=== PATIENT | female | born 1965 | race Caucasian/White ===

== ENCOUNTER → 2017-05-02 | Outpatient (CLI) | payer MEDICAID ==
[~2017-05-02] MED LIST: ACHD5005 PO; ALPR.25T PO; ALPR0.5T PO; BUSP15TA60 PO; CITA-105 PO; CYCL10TA45 PO; CYCL10TA9 PO; DCS100C PO; DIAZ5TAB3 PO; DICL50TA3 PO; ESTR1TAB24 PO; ETOD400T PO; GABA-486 PO; GABA-488 PO; GABA300C PO; GBPN100C PO; HYDR-1435 PO; HYDR-2890 PO; HYDR-623 PO; HYDR50TA76 PO; IBP800T PO; KETO200T PO; Lyrica; MECL-124 PO; MELO-195 PO; METO-272 PO; METR500T PO; NAPR-243 PO; NAPR220T76 PO; NIAC1CAP PO; NITR-65 PO; ONDA4TAB11 PO; ONDN4T PO; OXYC-12 PO; OXYC-190 PO; OXYC-272 PO; PANT40TA2 PO; PHEN-452 PO; PHEN100T17 PO; QUET50TA PO; SENN-35 PO; SEROQUEL; SERT100T8 PO; TRAZ150T42 PO; VENL150C PO; VNL75T PO
--- NOTE | 2017-05-02 09:53 | Diagnostic Imaging Report ---
Three views of the left knee. INDICATION: Left knee pain. FINDINGS: There is narrowing of the joint space in the medial compartment and the patellofemoral compartments. There is tricompartmental osteophytes. No significant effusion seen. No fracture, dislocation or radiopaque foreign body. IMPRESSION: Osteoarthritis most prominent in the medial and patellofemoral compartments. Dictated by: Dictated on workstation # [id number]
== END ==
LOC: RAD 09:17
DX: M17.12 Unilateral primary osteoarthritis, left knee (principal)
CPT/HCPCS: 73562

== ENCOUNTER 2017-11-21 22:22 | Emergency (ER) | payer MEDICARE, OTHER, MEDICAID ==
[~2017-11-21] VITALS: Ht 149.9 cm; Wt 77.2 kg
--- OUTSIDE RECORDS SUMMARY | 2017-11-21 22:28 | XMS REPORT ---
Author Author HEMA MARIE Organization [employer] Address Unknown Phone Unavailable Care Team Providers Care Pathology Technician Name Role Phone HEMA MARIE CP Unavailable Allergies No Known Allergies Problems Problem Type Condition ICD-9 Code Onset Dates Condition Status Problem Pain in joint, site unspecified 719.40 Active Problem Essential hypertension, benign 401.1 Active Problem Other and unspecified hyperlipidemia 272.4 Active Problem Family history of diabetes mellitus V18.0 Active Problem Anxiety state, unspecified 300.00 Active Problem Influenza with other respiratory manifestations 487.1 Active Problem Unspecified myalgia and myositis 729.1 Active Problem Pain in soft tissues of limb 729.5 Active Problem Major depressive disorder, recurrent episode, moderate 296.32 Active Problem Candidiasis of skin and nails 112.3 Active Assessment Dental examination V72.2 Active Problem Encounter for long-term (current) use of other medications V58.69 Active Problem Routine general medical examination at health care facility V70.0 Active Problem Abdominal pain, right lower quadrant 789.03 Active Medications No Known Medications Procedures Procedure Coding System Code Date RESIN COMPOS - ONE SURFACE ANTERIOR CPT-4 D2330 June 04, 2015 RESIN COMPOS - 2 SURFACES ANTERIOR CPT-4 D2331 June 04, 2015 RESIN COMPOS - ONE SURFACE ANTERIOR CPT-4 D2330 June 04, 2015 Results No Known Results Summary Purpose [employer] Submission
--- OUTSIDE RECORDS SUMMARY | 2017-11-21 22:28 | XMS REPORT ---
Author REMA Mathew [employer] Address Unknown Phone Unavailable Care Team Providers Care Supervisor Sawing And Assembly Name Role Phone REMA HUGHES CP Unavailable Allergies, Adverse Reactions, Alerts Substance Reaction Event Type Penicillin V Potassium Info Not Available Drug Allergy Cymbalta 30 Mg Capsule,delayed Release(dr/ec) Nightmares Non Drug Allergy Problems Problem Type Condition Code Onset Dates Condition Status Problem Pain [...] of skin and nails 112.3 Active Assessment Encounter for dental examination Z01.20 Active Problem Encounter for long-term (current) use of other medications V58.69 Active Problem Routine general medical examination at health care facility V70.0 Active Problem Abdominal pain, right lower quadrant 789.03 Active Medications Medication Code System Code Instructions Start Date End Date Status Dosage venlafaxine ND 0 50 mg May 08, 2014 take 1 tablet (50 mg) by oral route 2 times per day with food Gabapentin [facility] [address]-24 300 mg May 08, 2014 take 1 capsule ( 300 mg) by oral route 3 times per day Clotrimazole [facility] [address]-30 1 % January 29, 2015 1 flor by Topical route 2 times per day Alprazolam [facility] [address]-48 0.5 mg May 08, 2014 take 1 tablet ( 0.5 mg) by oral route 3 times per day Nystatin [facility] [address]-15 100,000 unit/gram May 08, 2014 1 application 3 times per day Apply to affected area 3 times daily as needed for yeast infection. Effexor XR [facility] [address]-80 75 mg Nov 08, 2013 1 capsule by Oral route 1 time per day Diflucan [facility] [address]-87 150 mg January 29, 2015 take 1 tablet by Oral route once 1 time per day repeat in 3 days Diazepam [facility] [address]-64 not defined Hydrocodone-Acetaminophen [facility] [address]-95 7.5-325 mg May 08, 2014 take 1 tablet by oral route every 4 hours as needed for pain Cipro [facility] [address]-35 500 mg Jun 25, 2013 1 tablet by Oral route every 12 hours for 10 day(s) Etodolac [facility] [address]-36 400 mg May 08, 2014 take 1 tablet ( 400 mg) by oral route 2 times per day with food Procedures Procedure Coding System Code Date INTRAORL-PERIAPICAL 1 FILM 39555 CPT-4 D0220 June 15, 2016 BITEWINGS - FOUR FILMS CPT-4 D0274 June 15, 2016 COMP ORAL EVALUATION - NEW/EST PT CPT-4 D0150 June 15, 2016 PANORAMIC FILM SEE ALSO CODE 92317 CPT-4 D0330 June 15, 2016 Vital Signs Date/Time: June 15, 2016 Blood Pressure Diastolic 89 mmHg Blood Pressure Systolic 162 mmHg Cardiac Monitoring Heart Rate 90 bpm Results No Known Results Summary Purpose [employer]ClinicalWorks Submission
--- OUTSIDE RECORDS SUMMARY | 2017-11-21 22:29 | XMS REPORT ---
Author Author FAUSTINO MELO [facility] Address [address] [place] [address] Care Team Providers Care Media Analyst Name Role Phone FAUSTINO MELO Unavailable PROBLEMS Type Condition ICD9-CM Code [id number] Code Onset Dates Condition Status SNOMED Code Problem Other and unspecified hyperlipidemia 272.4 Active 68246222 Problem Pain in soft tissues of limb 729.5 Active 08490840 Problem Essential hypertension, benign 401.1 Active 6147964 Problem Encounter for long-term (current) use of other medications V58.69 Active 262453311 Problem Routine general medical examination at health care facility V70.0 Active 695267932 Problem Abdominal pain, right lower quadrant 789.03 Active 644261393 Problem Pain in joint, site unspecified 719.40 Active 80477307 Problem Influenza with other respiratory manifestations 487.1 Active 9481224 Problem Family history of diabetes mellitus V18.0 Active 090970740 Problem Candidiasis of skin and nails 112.3 Active 554349534 Problem Unspecified myalgia and myositis 729.1 Active 258026694 Problem Anxiety state, unspecified 300.00 Active 825660340 Problem Major depressive disorder, recurrent episode, moderate 296.32 Active 04868736 ALLERGIES No Known Allergies SOCIAL HISTORY No smoking Hx information available PLAN OF CARE VITAL SIGNS MEDICATIONS No Known Medications RESULTS No Results PROCEDURES No Known procedures IMMUNIZATIONS No Known Immunizations
--- OUTSIDE RECORDS SUMMARY | 2017-11-21 22:29 | XMS REPORT ---
Author Author REMA Pierce Organization [facility] [place] Address Unknown Care Team Providers Care Museum Preparator Name Role Phone REMA Pierce Unavailable PROBLEMS Type Condition ICD9-CM Code [id number] Code Onset Dates Condition Status SNOMED Code Problem Other and unspecified hyperlipidemia 272.4 Active 68514041 Problem Pain in soft tissues of limb 729.5 Active 03678561 Problem Essential hypertension, benign 401.1 Active 4865868 Problem Encounter for long-term (current) use of other medications V58.69 Active 206197035 Problem Routine general medical examination at health care facility V70.0 Active 032159579 Problem Abdominal pain, right lower quadrant 789.03 Active 109677556 Problem Pain in joint, site unspecified 719.40 Active 65288495 Problem Influenza with other respiratory manifestations 487.1 Active 7584517 Problem Family history of diabetes mellitus V18.0 Active 191889156 Problem Candidiasis of skin and nails 112.3 Active 790458893 Problem Unspecified myalgia and myositis 729.1 Active 307227571 Problem Anxiety state, unspecified 300.00 Active 796364255 Problem Major depressive disorder, recurrent episode, moderate 296.32 Active 52342255 ALLERGIES Substance Reaction Event Type Date Status Penicillin V Potassium Unknown Drug Allergy Sep, Active Cymbalta 30 Mg Capsule,delayed Release(dr/ec) Nightmares Non Drug Allergy Sep, Active SOCIAL HISTORY No smoking Hx information available PLAN OF CARE Activity Details Follow Up prn Reason:#5-crown VITAL SIGNS Height 60 in 2016-10-05 Blood pressure systolic 140 mmHg 2016-10-05 Blood pressure diastolic 83 mmHg 2016-10-05 MEDICATIONS Medication Instructions Dosage Frequency Start Date End Date Duration Status Gabapentin 300 mg take 1 capsule (300 mg) by oral route 3 times per day Apr, Active RESULTS No Results PROCEDURES Procedure Date Ordered Related Diagnosis Body Site RESIN COMPOS - 3 SURFACES POSTERIOR Oct 05, 2016 Billing Notes on claim Oct 05, 2016 IMMUNIZATIONS No Known Immunizations
--- OUTSIDE RECORDS SUMMARY | 2017-11-21 22:29 | XMS REPORT ---
Author REMA Mathew [facility] [employer] Address Unknown Phone Unavailable Care Team Providers Care Etl Informatica Architect Name Role Phone REMA HUGHES CP Unavailable Allergies No Known Allergies Problems Problem Type Condition Code Onset Dates [...] and nails 112.3 Active Assessment Encounter for other administrative examinations Z02.89 Active Problem Encounter for long-term (current) use of other medications V58.69 Active Problem Routine general medical examination at health care facility V70.0 Active Problem Abdominal pain, right lower quadrant 789.03 Active Medications No Known Medications Procedures Procedure Coding System Code Date Dental Prepay for Future Services CPT-4 DTPRP Jul 13, 2016 Results No Known Results Summary Purpose [employer]ClinicalWorks Submission
--- OUTSIDE RECORDS SUMMARY | 2017-11-21 22:29 | XMS REPORT ---
Author Author ELLEN MARI [employer] Address Unknown Phone Unavailable Care Team Providers Care Environmental Department Manager Name Role Phone ELLEN MARI CP Unavailable Allergies, Adverse Reactions, Alerts Substance [...] and nails 112.3 Active Assessment Dental examination Z01.20 Active Problem Encounter for long-term (current) use of other medications V58.69 Active Problem Routine general medical examination at health care facility V70.0 Active Problem Abdominal pain, right lower quadrant 789.03 Active Medications Medication Code System Code Instructions Start Date End Date Status Dosage Nystatin [facility] [address]-22 100,000 unit/gram May 08, 2014 1 application 3 times per day Apply to affected area 3 times daily as needed for yeast infection. Effexor XR [facility] [address]-40 75 mg Nov 08, 2013 1 capsule by Oral route 1 time per day Clotrimazole [facility] [address]-58 1 % January 29, 2015 1 flor by Topical route 2 times per day Hydrocodone-Acetaminophen [facility] [address]-98 7.5-325 mg May 08, 2014 take 1 tablet by oral route every 4 hours as needed for pain venlafaxine ND 0 50 mg May 08, 2014 take 1 tablet (50 mg) by oral route 2 times per day with food Gabapentin [facility] [address]-81 300 mg May 08, 2014 take 1 capsule ( 300 mg) by oral route 3 times per day Diflucan [facility] [address]-65 150 mg January 29, 2015 take 1 tablet by Oral route once 1 time per day repeat in 3 days Alprazolam [facility] [address]-58 0.5 mg May 08, 2014 take 1 tablet ( 0.5 mg) by oral route 3 times per day Cipro [facility] [address]-27 500 mg Jun 25, 2013 1 tablet by Oral route every 12 hours for 10 day(s) Etodolac [facility] [address]-04 400 mg May 08, 2014 take 1 tablet ( 400 mg) by oral route 2 times per day with food Procedures Procedure Coding System Code Date RESIN COMPOS - ONE SURFACE ANTERIOR CPT-4 D2330 Oct 28, 2015 RESIN COMPOS - ONE SURFACE ANTERIOR CPT-4 D2330 Oct 28, 2015 Vital Signs Date/Time: Oct 28, 2015 Blood Pressure Diastolic 92 mmHg Blood Pressure Systolic 147 mmHg Results No Known Results Summary Purpose eClinicalWorks Submission
--- OUTSIDE RECORDS SUMMARY | 2017-11-21 22:29 | XMS REPORT ---
Author Author REMA HUGHES [facility] Address Unknown Care Team Providers Care Eeler Name Role Phone EMMANUELREMA KEYS Unavailable PROBLEMS Type Condition ICD9-CM Code [id number] Code Onset Dates Condition Status SNOMED Code Problem Other and unspecified hyperlipidemia 272.4 Active 36461235 Problem Pain in soft tissues of limb 729.5 Active 97810895 Problem Essential hypertension, benign 401.1 Active 1147846 Problem Influenza with other respiratory manifestations 487.1 Active 9009457 Problem Family history of diabetes mellitus V18.0 Active 726290678 Problem Candidiasis of skin and nails 112.3 Active 929468830 Problem Unspecified myalgia and myositis 729.1 Active 649921414 Problem Anxiety state, unspecified 300.00 Active 805971013 Problem Major depressive disorder, recurrent episode, moderate 296.32 Active 05405332 Problem Encounter for long-term (current) use of other medications V58.69 Active 206217910 Problem Routine general medical examination at health care facility V70.0 Active 758918489 Problem Abdominal pain, right lower quadrant 789.03 Active 875680672 Assessment Encounter for other administrative examinations Z02.89 28 Jul Active Problem Pain in joint, site unspecified 719.40 Active 71369423 ALLERGIES No Known Allergies SOCIAL HISTORY No smoking Hx information available PLAN OF CARE VITAL SIGNS MEDICATIONS No Known Medications RESULTS No Results PROCEDURES Procedure Date Ordered Related Diagnosis Body Site Dental Prepay for Future Services Aug 17, 2016 IMMUNIZATIONS No Known Immunizations
[2017-11-21] MEDS ORDERED: HYDROcodone/APAP 5 MG/325 MG (LORTAB) TAB PO ONE (22:45)
--- NOTE | 2017-11-21 22:46 | ED Lower Extremity ---
General Chief Complaint: Lower Extremity Stated Complaint: RT KNEE PAIN Nursing Triage Note: right knee pain after cortisone injection Nursing Sepsis Screen: No Definite Risk Source: patient, other Exam Limitations: no limitations History of Present Illness Time seen by provider: 22:40 Initial Comments Patient present to ER by private conveyance with a chief complaint that she is having pain swelling and a knot on the side of her right knee that started today after she got both her knees injected with steroids at her primary care doctor's office. She says she's been followed up with Drs. Whitaker and he's done a scope on her left knee and told her that they both probably need replaced. She has plan to have her right knee scoped in the future. She has had steroid injections just today. No fevers, chills, nausea, vomiting, rash, shortness of breath, chest pain. She has a pertinent medical history of fibromyalgia and depression. No history recent trauma to the knee. Allergies and Home Medications Allergies Coded Allergies: Penicillins (Verified Allergy, Severe, ANAPHYLACTIC, 03/02/14) Home Medications Gabapentin 300 Mg Capsule, 600 MG PO TID, (Reported) Pantoprazole Sodium 40 Mg Tablet.dr, 40 MG PO DAILY, #14 Prescribed by: DAYNA MEI on 03/31/161909 Quetiapine Fumarate 50 Mg Tablet, 50 MG PO HS, (Reported) Venlafaxine Hcl 150 Mg Cap.sr.24h, 2 EACH PO DAILY, (Reported) Constitutional: No chills, No fever, No malaise Respiratory: No cough, No phlegm, No short of breath Cardiovascular: No chest pain, No palpitations Gastrointestinal: No abdominal pain, No constipation, No diarrhea, No nausea, No vomiting Genitourinary: No discharge, No dysuria Musculoskeletal: see HPI, No back pain, joint pain Skin: no symptoms reported, No pruritus, No rash Past Lqctjzu-Vvlkxb-Nxeiws Hx Patient Social History Alcohol Use: Denies Use Recreational Drug Use: No Smoking Status: Never a Smoker Recent Foreign Travel: No Contact w/Someone Who Travel: No Recent Infectious Disease Expo: No Recent Hopitalizations: No Immunizations Up To Date Tetanus Booster (TDap): Less than 5yrs Date of Influenza Vaccine: Sep 11, 2014 Seasonal Allergies Seasonal Allergies: Yes Surgeries History of Surgeries: Yes Surgeries: Section, Gallbladder, Hysterectomy, Orthopedic Respiratory History of Respiratory Disorde: No Cardiovascular History of Cardiac Disorders: No Neurological History of Neurological Disord: Yes Neurological Disorders: Headaches /Migraines Reproductive System : No Hx Reproductive Disorders: Yes (ENDOMETRIOSIS, MILD DYSPLASIA) Sexually Transmitted Disease: No HIV/AIDS: No Female Reproductive Disorders: 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 Gastrointestinal History of Gastrointestinal Di: Yes Gastrointestinal Disorders: Diverticulosis, Gall Bladder Disease Musculoskeletal History of Musculoskeletal Dis: Yes Musculoskeletal Disorders: Arthritis, Fibromyalgia Endocrine History of Endocrine Disorders: No Cancer History of Cancer: No Psychosocial History of Psychiatric Problem: Yes (mood disorder) Behavioral Health Disorders: Anxiety, Depression Integumentary History of Skin or Integumenta: No Blood Transfusions History of Blood Disorders: No Adverse Reaction to a Blood Tr: No Family Medical History Significant Family History: No Pertinent Family Hx Family Medial History: Cancer 03 FATHER 03 MOTHER (cerivcal) Cataract 03 MOTHER Chest pain 03 MOTHER Congestive heart failure (grandmother) Dementia (grandmother) Family history: Allergy (son) Family history: Alzheimer's disease (grandmother) Family history: Arthritis 03 MOTHER Family history: Asthma (son) Family history: Cardiovascular disease 03 MOTHER Family history: Diabetes mellitus 03 MOTHER Family history: Hypertension 03 FATHER 03 MOTHER Hearing loss 03 FATHER Heart disease 03 MOTHER History of - anemia 03 MOTHER 09 SISTER Hypercholesterolemia 03 FATHER 03 MOTHER Malignant neoplasm of lung 03 FATHER Myocardial infarction 09 BROTHER No Family History of: Abdominal aortic aneurysm Rickie's disease Alcoholism Aphasia Cancer of colon Congenital heart disease Cystic fibrosis Dysphagia Family history: Breast disease Family history: Coronary thrombosis Family history: Gastrointestinal disease Family history: Glaucoma Family history: Osteoporosis Family history: Thyroid disorder Headache Hereditary disease History of - disorder History of - respiratory disease History of drug abuse Human immunodeficiency virus (HIV) seropositivity Infertile Kidney disease Parkinson's disease Prostate cancer Psychotic disorder Seizure disorder Stroke Tuberculosis Visual impairment Physical Exam Vital Signs Vital Sign - Last 12Hours 11/21/17 22:25 Temp 97.9 Pulse 67 Resp 16 B/P (MAP) 144/76 (98) Pulse Ox 97 O2 Delivery Room Air Capillary Refill : Less Than 3 Seconds General Appearance: WD/WN, no apparent distress HEENT: PERRL/EOMI, pharynx normal Cardiovascular: normal peripheral pulses, regular rate, rhythm, no edema Respiratory: no respiratory distress, no accessory muscle use Hips: bilateral hip non-tender, bilateral hip normal inspection, bilateral hip normal range of motion, bilateral hip no evidence of injury Legs: bilateral leg non-tender, bilateral leg normal inspection, bilateral leg normal range of motion, bilateral leg no evidence of injury Knees: left knee non-tender, left knee normal inspection, bilateral knee normal range of motion, left knee no evidence of injury, right knee nodules ( anterior lateral to the patella is a old in the joint capsule consistent with a joint effusion, soft, not red or hot or tense. Mildly tender to palpation.) Ankles: bilateral ankle non-tender, bilateral ankle normal inspection, bilateral ankle normal range of motion, bilateral ankle no evidence of injury Feet: bilateral foot non-tender, bilateral foot normal inspection, bilateral foot normal range of motion, bilateral foot no evidence of injury Neurologic/Tendon: normal sensation, normal motor functions, normal tendon functions, responds to pain, no evidence tendon injury Neurologic/Psychiatric: alert, normal mood/affect, oriented x 3 Skin: normal color, warm/dry Progress/Results/Core Measures Results/Orders Lab Results Laboratory Tests Test 11/21/17 21:45 Range/Units White Blood Count 10.2 4.3-11.0 10^3/uL Red Blood Count 4.45 4.35-5.85 10^6/uL Hemoglobin 12.8 11.5-16.0 G/DL Hematocrit 40 35-52 % Mean Corpuscular Volume 89 80-99 FL Mean Corpuscular Hemoglobin 29 25-34 PG Mean Corpuscular Hemoglobin Concent 32 32-36 G/DL Red Cell Distribution Width 14.4 10.0-14.5 % Platelet Count 216 130-400 10^3/uL Mean Platelet Volume 10.8 H 7.4-10.4 FL Neutrophils (%) (Auto) 94 H 42-75 % Lymphocytes (%) (Auto) 6 L 12-44 % Monocytes (%) (Auto) 1 0-12 % Eosinophils (%) (Auto) 0 0-10 % Basophils (%) (Auto) 0 0-10 % Neutrophils # (Auto) 9.5 H 1.8-7.8 X 10^3 Lymphocytes # (Auto) 0.6 L 1.0-4.0 X 10^3 Monocytes # (Auto) 0.1 0.0-1.0 X 10^3 Eosinophils # (Auto) 0.0 0.0-0.3 10^3/uL Basophils # (Auto) 0.0 0.0-0.1 10^3/uL Neutrophils % (Manual) 86 % Lymphocytes % (Manual) 9 % Monocytes % (Manual) 1 % Eosinophils % (Manual) 0 % Basophils % (Manual) 0 % Band Neutrophils 4 % Blood Morphology Comment NORMAL Erythrocyte Sedimentation Rate 23 0-30 MM/HR Sodium Level 140 135-145 MMOL/L Potassium Level 3.7 3.6-5.0 MMOL/L Chloride Level 105 98-107 MMOL/L Carbon Dioxide Level 26 21-32 MMOL/L Anion Gap 9 5-14 MMOL/L Blood Urea Nitrogen 11 7-18 MG/DL Creatinine 0.75 0.60-1.30 MG/DL Estimat Glomerular Filtration Rate > 60 BUN/Creatinine Ratio 15 Glucose Level 226 H 70-105 MG/DL Calcium Level 9.0 8.5-10.1 MG/DL Total Bilirubin 0.5 0.1-1.0 MG/DL Aspartate Amino Transf (AST/SGOT) 23 5-34 U/L Alanine Aminotransferase (ALT/SGPT) 29 0-55 U/L Alkaline Phosphatase 93 40-136 U/L C-Reactive Protein High Sensitivity 1.31 H 0.00-0.50 MG/DL Total Protein 6.9 6.4-8.2 GM/DL Albumin 4.0 3.2-4.5 GM/DL My Orders Orders - BRAYAN ENG Hydrocodone/Apap 5/325 Tablet (Lortab 5 (11/21/17 22:45) Cbc With Automated Diff (11/21/17 22:39) Comprehensive Metabolic Panel (11/21/17 22:39) Hs C Reactive Protein (11/21/17 22:39) Erythrocyte Sedimentation Rate (11/21/17 22:39) Manual Differential (11/21/17 21:45) Medications Given in ED Current Medications Medications Dose Ordered Sig/Kali Route Start Time Stop Time Status Last Admin Dose Admin Acetaminophen/ Hydrocodone Bitart 1 tab ONCE ONCE PO 11/21/17 22:45 11/21/17 22:46 DC 11/21/17 22:48 1 TAB Vital Signs/I&O Vital Sign - Last 12Hours 11/21/17 11/21/17 22:25 22:48 Temp 97.9 97.9 Pulse 67 Resp 16 B/P (MAP) 144/76 (98) Pulse Ox 97 O2 Delivery Room Air Blood Pressure Mean: 98 Progress Note : Time: 22:44 Progress Note Patient has a joint effusion on the right knee at same day he has a knee injection. This unlikely to be septic however we'll check a CBC, CRP, ESR and CMP look for any evidence of inflammation that might point to a bacterial infection. On inspection and examination the knee does not seem to be red, hot or infected. She did walk in on it. Departure Impression Impression: Primary Impression: Effusion of knee joint right Disposition: 01 HOME, SELF-CARE Condition: Improved Departure-Patient Inst. Decision time for Depature: 23:35 Referrals: LUIS E CHOUDHARY MD (PCP/Family) Primary Care Physician Patient Instructions: Chronic Knee Pain (DC) Add. Discharge Instructions: As long as you're having the joint effusion keep a Nicola bandage or neoprene knee sleeve wrapped around the knee to help keep the fluid down. Use ice for 20 minutes every 4 hours for the first 3 or 4 days. Continue taking NSAIDs such as Aleve 2 capsules twice a day or ibuprofen 800 mg every 8 hours for the first 2 weeks. If you're still having breakthrough pain you may use the hydrocodone one tablet every 6 hours. Follow-up with your primary care physician if you're not seeing improvement in the next couple days as she may benefit from some physical therapy as well. If you begin to have fevers, nausea, chills, hot swollen knee or worsening symptoms return to your primary care physician or the ER for further evaluation. Remember rice therapy. Rest, ice, compression, elevation. All discharge instructions reviewed with patient and/or family. Voiced understanding. Scripts Hydrocodone Bit/Acetaminophen (Hydrocodone/Acetaminophen 5/325mg Tablet) 1 Tab Tab 1 EACH PO Q6H Y for BREAKTHROUGH PAIN, #8 TAB 0 Refills Prov: BRAYAN ENG 11/21/17 Copy Copies To 1: LUIS E CHOUDHARY MD, TITUS J Nov 21, 2017 22:46
[2017-11-21 22:57] LABS: BASOPHILS % (AUTO) 0 % (0-10); EOSINOPHILS % (AUTO) 0 % (0-10); HEMATOCRIT 40 % (35-52); HEMOGLOBIN 12.8 G/DL (11.5-16.0); LYMPHOCYTES # (AUTO) 0.6 X 10^3 (1.0-4.0); LYMPHOCYTES % (AUTO) 6 % (12-44); MEAN CORPUSCULAR HEMOGLOBIN 29 PG (25-34); MEAN CORPUSCULAR HGB CONC 32 G/DL (32-36); MEAN CORPUSCULAR VOLUME 89 FL (80-99); MEAN PLATELET VOLUME 10.8 FL (7.4-10.4); MONOCYTES # (AUTO) 0.1 X 10^3 (0.0-1.0); MONOCYTES % (AUTO) 1 % (0-12); NEUTROPHILS # (AUTO) 9.5 X 10^3 (1.8-7.8); NEUTROPHILS % (AUTO) 94 % (42-75); PLATELET COUNT 216 10^3/uL (130-400); RED BLOOD COUNT 4.45 10^6/uL (4.35-5.85); RED CELL DISTRIBUTION WIDTH 14.4 % (10.0-14.5); WHITE BLOOD COUNT 10.2 10^3/uL (4.3-11.0)
[2017-11-21 23:16] LABS: BAND NEUTROPHILS 4 %; BASOPHILS % (MANUAL) 0 %; EOSINOPHILS % (MANUAL) 0 %; LYMPHOCYTES % (MANUAL) 9 %; MONOCYTES % (MANUAL) 1 %; NEUTROPHILS % (MANUAL) 86 %; RBC MORPH NORMAL
[2017-11-21 23:19] LABS: ERYTHROCYTE SEDIMENTATION RATE 23 MM/HR (0-30)
[2017-11-21 23:20] LABS: ALANINE AMINOTRANSFERASE 29 U/L (0-55); ALKALINE PHOSPHATASE 93 U/L (40-136); BILIRUBIN,TOTAL 0.5 MG/DL (0.1-1.0); BUN/CREATININE RATIO 15; CARBON DIOXIDE 26 MMOL/L (21-32); CHLORIDE 105 MMOL/L (98-107); CREATININE SERUM 0.75 MG/DL (0.60-1.30); GFR ESTIMATED > 60; GLUCOSE 226 MG/DL (70-105); POTASSIUM 3.7 MMOL/L (3.6-5.0); SODIUM 140 MMOL/L (135-145); TOTAL PROTEIN 6.9 GM/DL (6.4-8.2)
[2017-11-21] MEDS ORDERED: ACHD5005 PO (23:36)
[2017-11-21 23:39] VITALS: BP 144/76
== END 2017-11-21 23:39 | disposition home or self-care (01) ==
LOC: EDUNIT# 22:22 → ER 22:24
DX: M25.461 Effusion, right knee (principal); F41.8 Other specified anxiety disorders; F32.9 Major depressive disorder, single episode, unspecified; G43.909 Migraine, unspecified, not intractable, without status migrainosus; M19.90 Unspecified osteoarthritis, unspecified site; Z87.59 Personal history of other complications of pregnancy, childbirth and the puerperium; Z90.710 Acquired absence of both cervix and uterus
CPT/HCPCS: 36415; 80053; 85007; 85027; 85652; 86141; 99283

== ENCOUNTER → 2018-03-06 | Outpatient (CLI) | payer MEDICARE, OTHER ==
[~2018-03-06] MED LIST changes: +DOXY100T19 PO; +SULF1TAB35 PO
== END ==
LOC: CARD 10:33
PROVIDERS: ATTEND Internal Medicine Interventional Cardiology
DX: Z01.810 Encounter for preprocedural cardiovascular examination (principal); I10 Essential (primary) hypertension; E78.5 Hyperlipidemia, unspecified; E66.9 Obesity, unspecified
CPT/HCPCS: 93306

== ENCOUNTER 2018-04-16 20:45 | Emergency (ER) | payer MEDICARE, OTHER ==
[~2018-04-16] VITALS: Ht 149.9 cm; Wt 78.0 kg
[~2018-04-16 20:45] MED LIST changes: -DOXY100T19 PO; -SULF1TAB35 PO
[2018-04-16] MEDS ORDERED: SULF1TAB35 PO (21:17)
[2018-04-16] MEDS ORDERED: RX-MUPIROCIN (BACTROBAN) 2% OINT 22 GM TUBE TOP STA (21:18)
--- NOTE | 2018-04-16 21:18 | ED Integumentary General ---
General Chief Complaint: Skin/Wound Problems Stated Complaint: SORE ON ARM Nursing Triage Note: PT TO ED W/ C/O SORE/WOUND TO RFA. PT REPORTS SHE HAD A "SORE" REMOVED FROM RFA "A BIT AGO" AND SUTURES WERE REMOVED AFTER THAT. STATES HAS NOTICED OVER THE PAST COUPLE OF DAYS THE AREA HAS BECOME RED ET SWOLLEN. STATES SHE HAS BEEN ABLE TO EXPRESS SOME "PUS" FROM SITE. NO OTHER C/O VOICED History of Present Illness Date Seen by Provider: April 16, 2018 Time Seen by Provider: 21:05 Initial Comments 52-year-old female had a lesion removed from her left elbow by Dr. Choudhary and suture removal, over the last 3 or 4 days she's noted increased redness and swelling at the incision site. She has been cleaning it with peroxide and applying eymo-yrz-mvmmewd antibiotic ointment. Timing/Duration: getting worse Severity: mild Location: extremities (right upper) Possible Cause: no cause identified Associated Symptoms: denies symptoms Allergies and Home Medications Allergies Coded Allergies: Penicillins (Verified Allergy, Severe, ANAPHYLACTIC, 03/02/14) Home Medications Gabapentin 300 Mg Capsule, 600 MG PO TID, (Reported) Hydrocodone Bit/Acetaminophen 1 Tab Tab, 1 EACH PO Q6H PRN for BREAKTHROUGH PAIN Prescribed by: BRAYAN ENG on 11/21/17 2336 Pantoprazole Sodium 40 Mg Tablet.dr, 40 MG PO DAILY Prescribed by: DAYNA MEI on 03/31/16 191 Quetiapine Fumarate 50 Mg Tablet, 50 MG PO HS, (Reported) Sulfamethoxazole/Trimethoprim 1 Each Tablet, 1 EACH PO BID Prescribed by: SANDRA DAS on 04/16/182116 Venlafaxine Hcl 150 Mg Cap.sr.24h, 2 EACH PO DAILY, (Reported) Patient Home Medication List Home Medication List Reviewed: Yes Constitutional: no symptoms reported, see HPI Skin: see HPI, lesions (right elbow) All Other Systems Reviewed Negative Unless Noted: Yes Past Viinzxn-Udoruw-Ttsiwb Hx Past Med/Social Hx: Reviewed Nursing Past Med/Soc Hx Patient Social History Alcohol Use: Denies Use Recreational Drug Use: No Smoking Status: Never a Smoker Recent Foreign Travel: No Contact w/Someone Who Travel: No Recent Infectious Disease Expo: No Recent Hopitalizations: No Physical Abuse: No Sexual Abuse: No Mistreated: No Fear: No Immunizations Up To Date Tetanus Booster (TDap): Less than 5yrs Date of Influenza Vaccine: Sep 11, 2014 Seasonal Allergies Seasonal Allergies: Yes Past Medical History Surgeries: Yes Section, Gallbladder, Hysterectomy, Orthopedic Respiratory: No Cardiac: No Neurological: Yes Headaches /Migraines Reproductive Disorders: Yes (ENDOMETRIOSIS, MILD DYSPLASIA) Female 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 Sexually Transmitted Disease: No HIV/AIDS: No Gastrointestinal: Yes Diverticulosis, Gall Bladder Disease Musculoskeletal: Yes Arthritis, Fibromyalgia Endocrine: No Cancer: No Psychosocial: Yes (mood disorder) Anxiety, Depression Nursing Suicide Risk Score: 0 Integumentary: No Blood Disorders: No Adverse Reaction/Blood Tranf: No Family Medical History Cancer 03 FATHER 03 MOTHER (cerivcal) Cataract 03 MOTHER Chest pain 03 MOTHER Congestive heart failure (grandmother) Dementia (grandmother) Family history: Allergy (son) Family history: Alzheimer's disease (grandmother) Family history: Arthritis 03 MOTHER Family history: Asthma (son) Family history: Cardiovascular disease 03 MOTHER Family history: Diabetes mellitus 03 MOTHER Family history: Hypertension 03 FATHER 03 MOTHER Hearing loss 03 FATHER Heart disease 03 MOTHER History of - anemia 03 MOTHER 09 SISTER Hypercholesterolemia 03 FATHER 03 MOTHER Malignant neoplasm of lung 03 FATHER Myocardial infarction 09 BROTHER No Family History of: Abdominal aortic aneurysm Door's disease Alcoholism Aphasia Cancer of colon Congenital heart disease Cystic fibrosis Dysphagia Family history: Breast disease Family history: Coronary thrombosis Family history: Gastrointestinal disease Family history: Glaucoma Family history: Osteoporosis Family history: Thyroid disorder Headache Hereditary disease History of - disorder History of - respiratory disease History of drug abuse Human immunodeficiency virus (HIV) seropositivity Infertile Kidney disease Parkinson's disease Prostate cancer Psychotic disorder Seizure disorder Stroke Tuberculosis Visual impairment No Pertinent Family Hx Physical Exam Vital Signs Vital Signs - First Documented 04/16/18 20:57 Temp 97.5 Pulse 81 Resp 20 B/P (MAP) 173/86 (115) Pulse Ox 96 O2 Delivery Room Air Capillary Refill : Less Than 3 Seconds General Appearance: WD/WN, no apparent distress Cardiovascular: normal peripheral pulses, regular rate, rhythm Respiratory: chest non-tender, lungs clear, normal breath sounds Skin Problem Location: upper extremities (right upper, elbow) Skin Problem Character: abscess (trace erythema and warmth, no fluctuance, mild induration) Progress/Results/Core Measures Results/Orders My Orders Orders - SANDRA DAS Rx-Mupirocin 2% Oint (Rx-Bactroban) (04/16/18 21:18) Vital Signs/I&O 04/16/18 20:57 Temp 97.5 Pulse 81 Resp 20 B/P (MAP) 173/86 (115) Pulse Ox 96 O2 Delivery Room Air Blood Pressure Mean: 115 Departure Impression Primary Impression: Skin abscess Qualified Codes: L02.413 - Cutaneous abscess of right upper limb Disposition: HOME, SELF-CARE Condition: Stable Departure-Patient Inst. Decision time for Depature: 21:15 Referrals: LUIS E CHOUDHARY MD (PCP/Family) Primary Care Physician Patient Instructions: Skin Abscess Add. Discharge Instructions: Alternate heat and ice to the right arm wound. Apply antibiotic ointment every 8 hours after cleansing the area with peroxide. Follow-up with your primary care provider in 2-3 days, sooner if symptoms are not improving. Take antibiotic as prescribed. Return to emergency department as needed. All discharge instructions reviewed with patient and/or family. Voiced understanding. Scripts Sulfamethoxazole/Trimethoprim (Bactrim Ds Tablet) 1 Each Tablet 1 EACH PO BID, #20 TAB 0 Refills Prov: SANDRA DAS 04/16/18 Copy Copies To 1: LUIS E CHOUDHARY MD, AMY ARNP April 16, 2018 21:17
[2018-04-16 21:25] VITALS: BP 0/0
== END 2018-04-16 21:25 | disposition home or self-care (01) ==
LOC: EDUNIT# 20:45 → ER 20:46
DX: L02.413 Cutaneous abscess of right upper limb (principal); G43.909 Migraine, unspecified, not intractable, without status migrainosus; F41.9 Anxiety disorder, unspecified; F32.9 Major depressive disorder, single episode, unspecified; Z87.19 Personal history of other diseases of the digestive system; Z90.710 Acquired absence of both cervix and uterus; Z87.59 Personal history of other complications of pregnancy, childbirth and the puerperium; Z88.0 Allergy status to penicillin
CPT/HCPCS: 99283

== ENCOUNTER 2018-05-13 13:45 | Emergency (ER) | payer MEDICARE, OTHER ==
[~2018-05-13] VITALS: Ht 149.9 cm; Wt 78.0 kg
[~2018-05-13 13:45] MED LIST changes: +SULF1TAB35 PO
--- OUTSIDE RECORDS SUMMARY | 2018-05-13 13:52 | XMS REPORT ---
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 Name Role Phone LORIE FAUSTINO Unavailable PROBLEMS Type Condition ICD9-CM Code EPG69-LV Code Onset Dates Condition Status SNOMED Code Problem Pain in soft tissues of limb 729.5 Active 64117849 Problem Pain in joint, site unspecified 719.40 Active 35159883 Problem Unspecified myalgia and myositis 729.1 Active 553517098 Problem Encounter for long-term (current) use of other medications V58.69 Active 173499752 Problem Family history of diabetes mellitus V18.0 Active 945362695 Problem Routine general medical examination at health care facility V70.0 Active 338025866 Problem Abdominal pain, right lower quadrant 789.03 Active 671851717 Problem Candidiasis of skin and nails 112.3 Active 935060134 Problem Major depressive disorder, recurrent episode, moderate 296.32 Active 75913294 Problem Essential hypertension, benign 401.1 Active 5027711 Problem Influenza with other respiratory manifestations 487.1 Active 0948421 Problem Other and unspecified hyperlipidemia 272.4 Active 14471823 Problem Anxiety state, unspecified 300.00 Active 227844262 ALLERGIES No Information ENCOUNTERS Encounter Location Date Diagnosis [facility] [id number] [place] [address] 29 Oct, 2017 [facility] [address] [place] [address]- [address] 16 Sep, 2016 Dental examination Z01.20 [place] [address] [place] [id number] [place] [address] 28 Jul, 2016 Encounter for other administrative examinations Z02.89 [place] [address] [place] [address]- [address] 07 Jul, 2016 [facility] [address] [id number], [place] [address] Jun, Dental examination Z01.20 [facility] [address] [id number], [place] [address] Jun, Encounter for other administrative examinations Z02.89 [facility] [address] [id number], [place] [address] May, Encounter for dental examination Z01.20 [facility] [address] [id number][place] [id number] Oct, Dental examination Z01.20 [facility] [address] [id number][place] [id number] May, Dental examination V72.2 [facility] [id number] [place] [id number] Apr, Dental examination V72.2 [facility] [address] [id number] [place] [id number] Apr, Dental examination V72.2 [facility] [address] [id number][place] Feb, [facility] [address] [id number][place] Feb, [facility] [address] [id number], [place] [address] Jan, [facility] [address] [id number][place] [id number] Jan, [facility] [address] [id number], [place] [address] Jan, [facility] [address] [id number][place] Jan, [facility] [address] [facility] [id number], [place] [address] Nov, [facility] [address] [id number] [place] [address] Nov, [facility] [place] [facility] [address] [id number] [place] [address] Jun, [facility] [place] [facility] [address] [id number] [place] [address] Jun, [facility] [place] [facility] [address] [id number] [place] [address] Apr, [facility] [place] [facility] [address] [id number] [place] [address] Apr, [facility] [place] [facility] [address] [id number] [place] [address] Apr, [facility] [place] [facility] [address] [id number] [place] [address] Apr, [facility] [place] [facility] [address] [id number] [place] [address] Dec, [facility] [place] [facility] [address] [id number] [place] [address] Dec, [facility] [place] [facility] [address] [facility] [id number] [place] [address] Dec, [facility] [place] [facility] [address] [facility] [id number] [place] [address] Dec, [facility] [place] [facility] [address] [facility] [id number] [place] [address] Dec, [facility] [place] [facility] [address] [facility] [id number] [place] [address] Dec, [facility] [place] [facility] [address] [id number] [place] [address] Oct, [facility] [place] [facility] [address] [facility] [id number] [place] [address] Oct, [facility] [place] [facility] [address] [facility] [id number] [place] [address] Oct, [facility] [address] [id number] [place] [address] 17 Oct, 2013 [facility] [place] [facility] [address] [id number] [place] [address] 17 Oct, 2013 [facility] [place] [facility] [address] [id number] [place] [address] 17 Oct, 2013 [facility] [place] [facility] [address] [id number] [place] [address] 17 Oct, 2013 [facility] [address] [id number] [place] [address] 17 Oct, 2013 [facility] [place] [facility] [address] [id number] [place] [address]- [address] 16 Oct, 2013 [facility] [place] [facility] [address] [id number] [place] [address] 8[address] 13 Oct, 2013 [facility] [place] [facility] [address] [id number] [place] [address]- [address]78 13 Oct, 2013 [facility] [place] [facility] [address] [id number] [place] [address] 13 Oct, 2013 [facility] [place] [facility] [address] [id number] [place] [address] 13 Oct, 2013 [facility] [place] [facility] [address] [id number], [place] [address] 11 Oct, 2013 [facility] [place] [facility] [address] [id number], [place] [address] Oct, [facility] [place] [facility] [address] [id number] [place] [address] Oct, [facility] [place] [facility] [address] [id number], [place] [address] 30 Sep, 2013 [facility] [place] [facility] [address] [id number], [place] [address] 29 Sep, 2013 [facility] [place] [facility] [address] [id number], [place] [address] Sep, [facility] [address] [address] Sep, [facility] [address], [place] [address] Sep, [facility] [address], [place] [address] Jun, [facility] [address] [place] [address]- [address] May, [facility] [address] [place] [address]- [address] May, [facility] [address], [place] [address] Dec, [facility] [address], [place] [address] Aug, [facility] [address] [place] [id number] [address] Nov, IMMUNIZATIONS No Known Immunizations SOCIAL HISTORY Never Assessed REASON FOR VISIT eye exam PLAN OF CARE VITAL SIGNS MEDICATIONS Unknown Medications RESULTS No Results PROCEDURES No Known procedures INSTRUCTIONS MEDICATIONS ADMINISTERED No Known Medications MEDICAL (GENERAL) HISTORY Type Description Date Medical History back trouble Surgical History Surgical History Gallbladder Surgical History Hysterectomy
--- NOTE | 2018-05-13 14:06 | ED Integumentary General ---
General Chief Complaint: Skin/Wound Problems Stated Complaint: SORE ON RIGHT ARM, GETTING WORSE Source: patient Exam Limitations: no limitations History of Present Illness Date Seen by Provider: May 13, 2018 Time Seen by Provider: 14:02 Initial Comments to ER with a sore to the right elbow. This is been present for several weeks. This initially started with a skin lesion that was excised Dr. Choudhary's office. She states that she did have some deep sutures placed. She was seen here in the emergency room within the past few weeks for this and was given a prescription for mupirocin ointment and Bactrim. She states that it is essentially unchanged in appearance, neither worse nor better. Timing/Duration: just prior to arrival Severity: mild Allergies and Home Medications Allergies Coded Allergies: Penicillins (Verified Allergy, Severe, ANAPHYLACTIC, 03/02/14) Home Medications Gabapentin 300 Mg Capsule, 600 MG PO TID, (Reported) Hydrocodone Bit/Acetaminophen 1 Tab Tab, 1 EACH PO Q6H PRN for BREAKTHROUGH PAIN Prescribed by: BRAYAN ENG on 11/21/17 2336 Pantoprazole Sodium 40 Mg Tablet.dr, 40 MG PO DAILY Prescribed by: DAYNA MEI on 03/31/16 191 Quetiapine Fumarate 50 Mg Tablet, 50 MG PO HS, (Reported) Sulfamethoxazole/Trimethoprim 1 Each Tablet, 1 EACH PO BID Prescribed by: SANDRA DAS on 04/16/182116 Venlafaxine Hcl 150 Mg Cap.sr.24h, 2 EACH PO DAILY, (Reported) Patient Home Medication List Home Medication List Reviewed: Yes Constitutional: see HPI Respiratory: no symptoms reported Cardiovascular: no symptoms reported Genitourinary: no symptoms reported Musculoskeletal: no symptoms reported Skin: see HPI Psychiatric/Neurological: No Symptoms Reported Past Njjrmzd-Vcdtfg-Koeapc Hx Patient Social History Alcohol Use: Denies Use Recreational Drug Use: No Smoking Status: Never a Smoker Recent Foreign Travel: No Contact w/Someone Who Travel: No Recent Hopitalizations: No Physical Abuse: No Sexual Abuse: No Immunizations Up To Date Tetanus Booster (TDap): Less than 5yrs Date of Influenza Vaccine: Sep 11, 2014 Seasonal Allergies Seasonal Allergies: Yes Past Medical History Surgeries: Yes Section, Gallbladder, Hysterectomy, Orthopedic Respiratory: No Cardiac: No Neurological: Yes Headaches /Migraines Reproductive Disorders: Yes (ENDOMETRIOSIS, MILD DYSPLASIA) Female Reproductive Disorders: 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 Sexually Transmitted Disease: No HIV/AIDS: No Gastrointestinal: Yes Diverticulosis, Gall Bladder Disease Musculoskeletal: Yes Arthritis, Fibromyalgia Endocrine: No Cancer: No Psychosocial: Yes (mood disorder) Anxiety, Depression Nursing Suicide Risk Score: 0 Integumentary: No Blood Disorders: No Adverse Reaction/Blood Tranf: No Family Medical History Cancer 03 FATHER 03 MOTHER (cerivcal) Cataract 03 MOTHER Chest pain 03 MOTHER Congestive heart failure (grandmother) Dementia (grandmother) Family history: Allergy (son) Family history: Alzheimer's disease (grandmother) Family history: Arthritis 03 MOTHER Family history: Asthma (son) Family history: Cardiovascular disease 03 MOTHER Family history: Diabetes mellitus 03 MOTHER Family history: Hypertension 03 FATHER 03 MOTHER Hearing loss 03 FATHER Heart disease 03 MOTHER History of - anemia 03 MOTHER 09 SISTER Hypercholesterolemia 03 FATHER 03 MOTHER Malignant neoplasm of lung 03 FATHER Myocardial infarction 09 BROTHER No Family History of: Abdominal aortic aneurysm Evergreen's disease Alcoholism Aphasia Cancer of colon Congenital heart disease Cystic fibrosis Dysphagia Family history: Breast disease Family history: Coronary thrombosis Family history: Gastrointestinal disease Family history: Glaucoma Family history: Osteoporosis Family history: Thyroid disorder Headache Hereditary disease History of - disorder History of - respiratory disease History of drug abuse Human immunodeficiency virus (HIV) seropositivity Infertile Kidney disease Parkinson's disease Prostate cancer Psychotic disorder Seizure disorder Stroke Tuberculosis Visual impairment No Pertinent Family Hx Physical Exam Vital Signs Vital Signs - First Documented 05/13/18 13:55 Temp 98.2 Pulse 68 Resp 20 B/P (MAP) 150/81 (104) Pulse Ox 95 Capillary Refill : General Appearance: WD/WN, no apparent distress HEENT: PERRL/EOMI, normal ENT inspection Neck: non-tender, full range of motion Respiratory: no respiratory distress, no accessory muscle use Neurologic/Psychiatric: alert, oriented x 3 Skin: normal color, warm/dry, other (there is a 1 cm erythematous lesion to the dorsal aspect of the optimal right forearm. This is well demarcated there is no surrounding cellulitis. When squeezed a small amount of purulent material does come from the center of this. This was opened up a little larger with the blunt needle. Culture collected and sent to lab. This may represent infection vversus inflammatory reaction to the buried sutures) Skin Problem Character: erythema Progress/Results/Core Measures Results/Orders My Orders Orders - DAYNA MEI APRN Wound Culture (05/13/18 14:01) Vital Signs/I&O 05/13/18 13:55 Temp 98.2 Pulse 68 Resp 20 B/P (MAP) 150/81 (104) Pulse Ox 95 Departure Impression Primary Impression: Skin lesion Disposition: AGAINST MEDICAL ADVICE Condition: Stable Departure-Patient Inst. Decision time for Depature: 14:05 Referrals: LUIS E CHOUDHARY MD (PCP/Family) Primary Care Physician Patient Instructions: Wound Care (DC) Add. Discharge Instructions: . Take antibiotics as directed 2. Continue to wash twice daily with soap and water, apply the antibiotic ointment once or twice a day. This may represent infection versus just an inflammatory reaction to the stitches that were placed beneath the skin.culture results should be available within about 48 hours.All discharge instructions reviewed with patient and/or family. Voiced understanding. Scripts Doxycycline Monohydrate (Doxycycline Monohydrate) 100 Mg Tablet 100 MG PO BID, #14 TAB Prov: DAYNA MEI APRN 05/13/18 DAYNA MEI APRN May 13, 2018 14:06
[2018-05-13] MEDS ORDERED: DOXY100T19 PO (14:07)
[2018-05-13 14:14] VITALS: BP 150/81
== END 2018-05-13 14:14 | disposition left against medical advice (07) ==
LOC: EDUNIT# 13:45 → ER 13:48
DX: L98.8 Other specified disorders of the skin and subcutaneous tissue (principal); G43.909 Migraine, unspecified, not intractable, without status migrainosus; F41.9 Anxiety disorder, unspecified; F32.9 Major depressive disorder, single episode, unspecified; Z90.710 Acquired absence of both cervix and uterus; Z87.59 Personal history of other complications of pregnancy, childbirth and the puerperium; Z87.19 Personal history of other diseases of the digestive system; Z88.0 Allergy status to penicillin
CPT/HCPCS: 87070; 87077; 87186; 87205; 99282

== ENCOUNTER 2018-06-23 11:32 | Emergency (ER) | payer MEDICARE, OTHER ==
[~2018-06-23] VITALS: Ht 149.9 cm; Wt 70.8 kg
[~2018-06-23 11:32] MED LIST changes: +DOXY100T19 PO
[2018-06-23 12:03] LABS: CLARITY,URINE CLEAR; COLOR,URINE YELLOW; GLUCOSE, URINE (UA) NEGATIVE (NEGATIVE); KETONES,URINE 1+ (NEGATIVE); LEUKOCYTE ESTERASE ,URINE 2+ (NEGATIVE); NITRITE,URINE NEGATIVE (NEGATIVE); PH,URINE 6 (5-9); PROTEIN,URINE 2+ (NEGATIVE); UROBILINOGEN,URINE 4 MG/DL (NORMAL)
[2018-06-23 12:15] LABS: BACTERIA,URINE FEW /HPF; BILIRUBIN,URINE 1+ (NEGATIVE); CALCIUM OXALATE CRYSTALS,UR MODERATE /LPF
[2018-06-23 12:38] LABS: BASOPHILS % (AUTO) 0 % (0-10); EOSINOPHILS # (AUTO) 0.1 10^3/uL (0.0-0.3); EOSINOPHILS % (AUTO) 3 % (0-10); HEMATOCRIT 38 % (35-52); HEMOGLOBIN 12.5 G/DL (11.5-16.0); LYMPHOCYTES # (AUTO) 1.2 X 10^3 (1.0-4.0); LYMPHOCYTES % (AUTO) 25 % (12-44); MEAN CORPUSCULAR HEMOGLOBIN 29 PG (25-34); MEAN CORPUSCULAR HGB CONC 33 G/DL (32-36); MEAN CORPUSCULAR VOLUME 88 FL (80-99); MEAN PLATELET VOLUME 11.9 FL (7.4-10.4); MONOCYTES # (AUTO) 0.3 X 10^3 (0.0-1.0); MONOCYTES % (AUTO) 5 % (0-12); NEUTROPHILS # (AUTO) 3.2 X 10^3 (1.8-7.8); NEUTROPHILS % (AUTO) 66 % (42-75); PLATELET COUNT 195 10^3/uL (130-400); RED BLOOD COUNT 4.36 10^6/uL (4.35-5.85); RED CELL DISTRIBUTION WIDTH 14.3 % (10.0-14.5); WHITE BLOOD COUNT 4.8 10^3/uL (4.3-11.0)
[2018-06-23 12:55] LABS: ALANINE AMINOTRANSFERASE 42 U/L (0-55); ALBUMIN 4.2 GM/DL (3.2-4.5); ALKALINE PHOSPHATASE 77 U/L (40-136); AMYLASE 27 U/L (25-125); BILIRUBIN,TOTAL 0.7 MG/DL (0.1-1.0); BUN/CREATININE RATIO 16; CALCIUM 9.5 MG/DL (8.5-10.1); CARBON DIOXIDE 27 MMOL/L (21-32); CHLORIDE 108 MMOL/L (98-107); CREATININE SERUM 0.67 MG/DL (0.60-1.30); GFR ESTIMATED > 60; GLUCOSE 92 MG/DL (70-105); LIPASE 15 U/L (8-78); POTASSIUM 3.3 MMOL/L (3.6-5.0); SODIUM 145 MMOL/L (135-145); TOTAL PROTEIN 6.6 GM/DL (6.4-8.2)
[2018-06-23] MEDS ORDERED: IOHEXOL 350 MG/ML 100 ML (OMNIPAQUE 350) VIAL IV ONE (13:00)
[2018-06-23] MEDS ORDERED: NS 250 ML (IVPB) BAG IV ONE (13:00)
[2018-06-23] MEDS ORDERED: CATHETER FLUSH 10 ML SYR IV PRN (13:00)
--- NOTE | 2018-06-23 13:18 | ED Abdominal Pain ---
General Chief Complaint: Abdominal/GI Problems Stated Complaint: POST OP/L SIDE STOMACH PAIN Nursing Triage Note: PT AMBULATES TO ROOM 7 PT CO OF ABD PAIN ON L UPPER ABD, PT STATES STARTED 06/18/18 STATES SAT DOWN AND STARTED HAVING PAIN STATES HAS WORSEND, RATES 06/29. PT STATES HAD GASTRIC SLEEVE ON 05/29/18 Sepsis Screen: No Definite Risk Source of Information: Patient Exam Limitations: No Limitations History of Present Illness Date Seen by Provider: Jun 23, 2018 Time Seen by Provider: 11:35 Initial Comments Patient is a 52-year-old female who presents to the emergency room with complaints of left upper quadrant abdominal pain. She has had a gastric sleeve on 05/29/18 and has been recovering normally until 06/18/18 when the pain started after bending over to place a dog food dish on the ground. She states the pain has become gradually worse over this time. She reports using all of her postop pain medication. Allergies and Home Medications Allergies Coded Allergies: Penicillins (Verified Allergy, Severe, ANAPHYLACTIC, 03/02/14) Home Medications Hydrocodone/Acetaminophen 118 Ml Solution, 15 ML PO Q4H PRN for PAIN-MILD OR TEMPATURE Prescribed by: CARLITA FLORES on 06/23/18 0253 Patient Home Medication List Home Medication List Reviewed: Yes Review of Systems Constitutional: see HPI; No chills, No fever Gastrointestinal: See HPI; Denies Abdomen Distended; Abdominal Pain; Denies Diarrhea, Denies Nausea, Denies Vomiting All Other Systems Reviewed Negative Unless Noted: Yes Past Ydcepbj-Nxjjjh-Hplgci Hx Past Med/Social Hx: Reviewed Nursing Past Med/Soc Hx Patient Social History Alcohol Use: Denies Use Recreational Drug Use: No Smoking Status: Never a Smoker Recent Foreign Travel: No Contact w/Someone Who Travel: No Recent Infectious Disease Expo: No Recent Hopitalizations: Yes (MAY 27-GASTRIC SLEEVE) Physical Abuse: No Sexual Abuse: No Immunizations Up To Date Tetanus Booster (TDap): Less than 5yrs Date of Influenza Vaccine: Sep 11, 2014 Seasonal Allergies Seasonal Allergies: Yes Past Medical History Surgeries: Yes Section, Gallbladder, Hysterectomy, Orthopedic Respiratory: No Cardiac: No Neurological: Yes Headaches /Migraines Reproductive Disorders: Yes (ENDOMETRIOSIS, MILD DYSPLASIA) Female Reproductive Disorders: 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 Sexually Transmitted Disease: No HIV/AIDS: No Gastrointestinal: Yes Diverticulosis, Gall Bladder Disease Musculoskeletal: Yes Arthritis, Fibromyalgia Endocrine: No Cancer: No Psychosocial: Yes (mood disorder) Anxiety, Depression Nursing Suicide Risk Score: 0 Integumentary: No Blood Disorders: No Adverse Reaction/Blood Tranf: No Family Medical History Reviewed Nursing Family Hx Cancer 03 FATHER 03 MOTHER (cerivcal) Cataract 03 MOTHER Chest pain 03 MOTHER Congestive heart failure (grandmother) Dementia (grandmother) Family history: Allergy (son) Family history: Alzheimer's disease (grandmother) Family history: Arthritis 03 MOTHER Family history: Asthma (son) Family history: Cardiovascular disease 03 MOTHER Family history: Diabetes mellitus 03 MOTHER Family history: Hypertension 03 FATHER 03 MOTHER Hearing loss 03 FATHER Heart disease 03 MOTHER History of - anemia 03 MOTHER 09 SISTER Hypercholesterolemia 03 FATHER 03 MOTHER Malignant neoplasm of lung 03 FATHER Myocardial infarction 09 BROTHER No Family History of: Abdominal aortic aneurysm Fremont's disease Alcoholism Aphasia Cancer of colon Congenital heart disease Cystic fibrosis Dysphagia Family history: Breast disease Family history: Coronary thrombosis Family history: Gastrointestinal disease Family history: Glaucoma Family history: Osteoporosis Family history: Thyroid disorder Headache Hereditary disease History of - disorder History of - respiratory disease History of drug abuse Human immunodeficiency virus (HIV) seropositivity Infertile Kidney disease Parkinson's disease Prostate cancer Psychotic disorder Seizure disorder Stroke Tuberculosis Visual impairment No Pertinent Family Hx Physical Exam Vital Signs Vital Signs - First Documented 06/23/18 11:35 Temp 97.2 Pulse 58 Resp 18 B/P (MAP) 131/76 (94) Pulse Ox 98 Capillary Refill : Less Than 3 Seconds Height/Weight/BMI Height: 4'11.00" Weight: 156lbs. 2.0oz. 70.544205rd; 29.08 BMI Method:Stated General Appearance: WD/WN, no apparent distress Respiratory: chest non-tender, lungs clear, normal breath sounds, no respiratory distress, no accessory muscle use Cardiovascular: regular rate, rhythm, no edema, no gallop, no JVD, no murmur Gastrointestinal: normal bowel sounds, non tender, soft, no organomegaly, no pulsatile mass Skin: normal color, warm/dry Progress/Results/Core Measures Results/Orders Lab Results Laboratory Tests Test 06/23/18 11:52 06/23/18 12:30 Range/Units Urine Color YELLOW Urine Clarity CLEAR Urine pH 6 5-9 Urine Specific Cornelius 1.020 1.016-1.022 Urine Protein 2+ H NEGATIVE Urine Glucose (UA) NEGATIVE NEGATIVE Urine Ketones 1+ H NEGATIVE Urine Nitrite NEGATIVE NEGATIVE Urine Bilirubin 1+ H NEGATIVE Urine Urobilinogen 4 H NORMAL MG/DL Urine Leukocyte Esterase 2+ H NEGATIVE Urine RBC (Auto) NEGATIVE NEGATIVE Urine RBC 5-10 H /HPF Urine WBC 10-25 H /HPF Urine Squamous Epithelial Cells 10-25 H /HPF Urine Crystals PRESENT H /LPF Urine Calcium Oxalate Crystals MODERATE H /LPF Urine Bacteria FEW H /HPF Urine Casts NONE /LPF Urine Mucus NEGATIVE /LPF Urine Culture Indicated YES White Blood Count 4.8 4.3-11.0 10^3/uL Red Blood Count 4.36 4.35-5.85 10^6/uL Hemoglobin 12.5 11.5-16.0 G/DL Hematocrit 38 35-52 % Mean Corpuscular Volume 88 80-99 FL Mean Corpuscular Hemoglobin 29 25-34 PG Mean Corpuscular Hemoglobin Concent 33 32-36 G/DL Red Cell Distribution Width 14.3 10.0-14.5 % Platelet Count 195 130-400 10^3/uL Mean Platelet Volume 11.9 H 7.4-10.4 FL Neutrophils (%) (Auto) 66 42-75 % Lymphocytes (%) (Auto) 25 12-44 % Monocytes (%) (Auto) 5 0-12 % Eosinophils (%) (Auto) 3 0-10 % Basophils (%) (Auto) 0 0-10 % Neutrophils # (Auto) 3.2 1.8-7.8 X 10^3 Lymphocytes # (Auto) 1.2 1.0-4.0 X 10^3 Monocytes # (Auto) 0.3 0.0-1.0 X 10^3 Eosinophils # (Auto) 0.1 0.0-0.3 10^3/uL Basophils # (Auto) 0.0 0.0-0.1 10^3/uL Sodium Level 145 135-145 MMOL/L Potassium Level 3.3 L 3.6-5.0 MMOL/L Chloride Level 108 H 98-107 MMOL/L Carbon Dioxide Level 27 21-32 MMOL/L Anion Gap 10 5-14 MMOL/L Blood Urea Nitrogen 11 7-18 MG/DL Creatinine 0.67 0.60-1.30 MG/DL Estimat Glomerular Filtration Rate > 60 BUN/Creatinine Ratio 16 Glucose Level 92 70-105 MG/DL Calcium Level 9.5 8.5-10.1 MG/DL Total Bilirubin 0.7 0.1-1.0 MG/DL Aspartate Amino Transf (AST/SGOT) 32 5-34 U/L Alanine Aminotransferase (ALT/SGPT) 42 0-55 U/L Alkaline Phosphatase 77 40-136 U/L Total Protein 6.6 6.4-8.2 GM/DL Albumin 4.2 3.2-4.5 GM/DL Amylase Level 27 25-125 U/L Lipase 15 8-78 U/L Micro Results Microbiology 06/23/18 Urine Culture - Final, Complete See Comments Sent To l My Orders Orders - CARLITA FLORES Comprehensive Metabolic Panel (06/23/18 11:57) Lipase (06/23/18 11:57) Amylase (06/23/18 11:57) Ua Culture If Indicated (06/23/18 11:57) Saline Lock/Iv-Start (06/23/18 11:57) Cbc With Automated Diff (06/23/18 11:57) Ct Abdomen/Pelvis W (06/23/18 11:57) Urine Culture (06/23/18 11:52) Iohexol Injection (Omnipaque 350 Mg/Ml 1 (06/23/18 13:00) Sodium Chloride Flush (Catheter Flush Sy (06/23/18 13:00) Ns (Ivpb) (Sodium Chloride 0.9%) (06/23/18 13:00) Pharmacy Communication (Pharmacy Communi (06/23/18 12:49) Fentanyl Injection (Sublimaze Injection (06/23/18 14:30) Medications Given in ED Vital Signs/I&O 06/23/18 06/23/18 11:35 14:45 Temp 97.2 97.2 Pulse 58 58 Resp 18 18 B/P (MAP) 131/76 (94) 131/76 (94) Pulse Ox 98 98 Blood Pressure Mean: 94 Progress Progress Note : Progress Note I have discussed the CT findings with the patient and her son.She agrees to close follow up with here primary care provider and Dr. Dunlap. I am refilling her pain medications and treating her urinary tract infection with liquid bactrim as she is still on a liquid diet. She agrees with plans for discharge and return precautions were given. Diagnostic Imaging Diagonstic Imaging: CT Plain Films/CT/US/NM/MRI: abdomen, pelvis Comments NAME: ESAU HERN[facility]NDEZ [facility] REC#: [id number] PT STATUS: REG ER : 1965 PHYSICIAN: CARLITA FLORES ADMIT DATE: 06/23/18/ER Signed Date of Exam: 06/23/18 CT ABDOMEN/PELVIS W PROCEDURE: CT abdomen and pelvis with contrast. TECHNIQUE: Multiple contiguous axial images were obtained through the abdomen and pelvis after administration of intravenous contrast. INDICATION: Left upper quadrant pain. COMPARISON: 03/31/2016. FINDINGS: Lower chest: The lung bases are clear. No pericardial or pleural effusion. Peritoneum: No free intraperitoneal air or fluid. Liver and biliary system: Diffuse hypoattenuation liver is indicative of hepatic steatosis. No focal hepatic lesion. Cholecystectomy. No biliary duct dilatation. Spleen and Pancreas: There is a small hemangioma versus benign subcapsular cystic structure in the medial aspect of the dome of the spleen. The pancreas enhances normally without mass lesion or peripancreatic inflammatory changes. Adrenals: Normal. tract: There is a new partially exophytic 2.1 x 2.3 cm right renal mass which has an enhancing solid component occupying approximately 2/3 of the mass. No obstructive uropathy. Urinary bladder is normal. Status post hysterectomy. GI tract: Status post gastric sleeve procedure. No bowel obstruction. No pericolonic inflammatory changes. Normal appendix. Vasculature and Lymph nodes: Normal caliber aorta. No abdominal or pelvic lymphadenopathy. Musculoskeletal: No concerning osseous lesion. IMPRESSION: 1. New partially exophytic solid left renal mass measuring up to 2.3 cm is concerning for primary renal neoplasm. No evidence of metastatic disease in the abdomen or pelvis. Urology consultation is advised for further management. 2. No acute inflammatory or obstructive process in the abdomen or pelvis. 3. Diffuse hepatic steatosis. Dictated by: Dictated on workstation # [id number] Dict: 06/23/18 1322 Trans: 06/23/18 1349 Interpreted by: LIZANDRO ZAPIEN MD Electronically signed by: LIZANDRO ZAPIEN MD 06/23/18 1349 Departure Impression Primary Impression: Kidney mass Additional Impression: UTI (urinary tract infection) Disposition: 01 HOME, SELF-CARE Condition: Stable/Unchanged Departure-Patient Inst. Decision time for Depature: 14:34 Referrals: LUIS E CHOUDHARY MD (PCP/Family) Primary Care Physician HANNAH DUNLAP MD Add. Discharge Instructions: Take medication as directed. Close follow-up with Dr. Dunlap to rule out CT findings call first thing Monday morning. Also follow-up with Dr. Choudhary within 1 week for recheck. Return back to the emergency room for any worsening pain, nausea, vomiting, or any other concerns as needed. All discharge instructions reviewed with patient and/or family. Voiced understanding. Scripts Hydrocodone/Acetaminophen (Hydrocodon-Acetamin 7.5-325/15 ML) 118 Ml Solution 15 ML PO Q4H PRN for PAIN-MILD OR TEMPATURE for 10 Days, #118 ML Prov: CARLITA FLORES 06/23/18 Copy Copies To 1: LUIS E CHOUDHARY MD; HANNAH DUNLAP MD Copies To 2: HANNAH DUNLAP MD, TRAVIS Jun 23, 2018 13:18
--- NOTE | 2018-06-23 13:30 | Diagnostic Imaging Report ---
PROCEDURE: CT abdomen and pelvis with contrast. TECHNIQUE: Multiple contiguous axial images were obtained through the abdomen and pelvis after administration of intravenous contrast. INDICATION: Left upper quadrant pain. COMPARISON: 03/31/2016. FINDINGS: Lower chest: The lung bases are clear. No pericardial or pleural effusion. Peritoneum: No free intraperitoneal air or fluid. Liver and biliary system: Diffuse hypoattenuation liver is indicative of hepatic steatosis. No focal hepatic lesion. Cholecystectomy. No biliary duct dilatation. Spleen and Pancreas: There is a small hemangioma versus benign subcapsular cystic structure in the medial aspect of the dome of the spleen. The pancreas enhances normally without mass lesion or peripancreatic inflammatory changes. Adrenals: Normal. tract: There is a new partially exophytic 2.1 x 2.3 cm right renal mass which has an enhancing solid component occupying approximately 2/3 of the mass. No obstructive uropathy. Urinary bladder is normal. Status post hysterectomy. GI tract: Status post gastric sleeve procedure. No bowel obstruction. No pericolonic inflammatory changes. Normal appendix. Vasculature and Lymph nodes: Normal caliber aorta. No abdominal or pelvic lymphadenopathy. Musculoskeletal: No concerning osseous lesion. IMPRESSION: 1. New partially exophytic solid left renal mass measuring up to 2.3 cm is concerning for primary renal neoplasm. No evidence of metastatic disease in the abdomen or pelvis. Urology consultation is advised for further management. 2. No acute inflammatory or obstructive process in the abdomen or pelvis. 3. Diffuse hepatic steatosis. Dictated by: Dictated on workstation # [id number]
[2018-06-23] MEDS ORDERED: fentaNYL INJECTION 100 MCG/2 ML AMP IVP ONE (14:30)
[2018-06-23] MEDS ORDERED: HYDR118S10 PO (14:33)
[2018-06-23 14:45] VITALS: BP 131/76
== END 2018-06-23 14:44 | disposition home or self-care (01) ==
LOC: EDUNIT# 11:32 → ER 11:33
DX: N28.89 Other specified disorders of kidney and ureter (principal); N39.0 Urinary tract infection, site not specified; G43.909 Migraine, unspecified, not intractable, without status migrainosus; F41.9 Anxiety disorder, unspecified; F32.9 Major depressive disorder, single episode, unspecified; Z80.49 Family history of malignant neoplasm of other genital organs; Z82.49 Family history of ischemic heart disease and other diseases of the circulatory system; Z80.1 Family history of malignant neoplasm of trachea, bronchus and lung; Z87.19 Personal history of other diseases of the digestive system; Z87.448 Personal history of other diseases of urinary system; Z88.0 Allergy status to penicillin; Z98.84 Bariatric surgery status; Z87.59 Personal history of other complications of pregnancy, childbirth and the puerperium; Z90.710 Acquired absence of both cervix and uterus
CPT/HCPCS: 36415; 74177; 80053; 81000; 82150; 83690; 85025; 87088; 96374

== ENCOUNTER → 2018-07-20 | Outpatient (CLI) | payer MEDICARE, OTHER ==
[~2018-07-20] MED LIST changes: +HYDR118S10 PO
[2018-07-20 10:24] LABS: BUN/CREATININE RATIO 13; CREATININE SERUM 0.67 MG/DL (0.60-1.30); GFR ESTIMATED > 60
== END ==
LOC: LAB 09:45
PROVIDERS: ATTEND Urology
DX: Z29.9 Encounter for prophylactic measures, unspecified (principal)
CPT/HCPCS: 36415; 82565; 84520

== ENCOUNTER → 2018-07-21 | Outpatient (CLI) | payer MEDICARE, OTHER ==
[2018-07-21] MEDS: GADOBUTROL 7.5 MMOL/7.5 ML (GADAVIST) VIAL IV ONE (10:33)
--- NOTE | 2018-07-21 13:13 | Diagnostic Imaging Report ---
PROCEDURE: MR imaging abdomen with and without contrast. TECHNIQUE: Multiplanar, multisequence MR imaging of the abdomen was performed with and without contrast. INDICATION: Renal mass The recent CT abdomen/pelvis exam of 06/23/2018 noted a new partially exophytic solid mass along the superior pole of the left kidney. That finding is again evident on this exam. The lesion in question has both solid and cystic components to it and measures approximately 1.9 x 2.1 x 1.9 CM in maximum transverse AP and longitudinal dimensions. The presumed solid portion of this mass does appear to enhance on the postcontrast series and I would concur with the considerations of the CT abdomen/pelvis exam but this finding is most likely related to neoplasm. Its development since the previous exam of 03/31/2016 would also indicate that it is most likely neoplastic in nature. There are several small cysts associated with both kidneys. There is no other solid mass identified, however. There is no sign of hydronephrosis. The liver, spleen, pancreas, adrenals, aorta and inferior vena cava are unremarkable for an acute abnormality. The gallbladder is surgically absent. The stomach is difficult to evaluate. There is no abnormal signal arising from the osseous structures to suggest bone edema, a fracture or a destructive lesion. IMPRESSION: 1. The complex mass involving the superior pole of the left kidney seen on the recent CT abdomen/pelvis exam is again evident. While this finding does not have an aggressive appearance, it could certainly be neoplastic. I concur with the recommendation of the previous exam that a urology consult be obtained. 2. There are multiple small cysts involving both kidneys. The kidneys are otherwise unremarkable. 3. There is no acute abnormality of the abdomen. Dictated by: Dictated on workstation # [id number]
== END ==
LOC: RAD 09:06
PROVIDERS: ATTEND Urology
DX: N28.89 Other specified disorders of kidney and ureter (principal); N28.1 Cyst of kidney, acquired
CPT/HCPCS: 74183

== ENCOUNTER 2019-02-06 10:32 | Outpatient (CLI) | payer MEDICARE, OTHER ==
[~2019-02-06] VITALS: Ht 149.9 cm; Wt 57.2 kg
[2019-02-06 10:40] VITALS: BP 129/79
[2019-02-06] MEDS ORDERED: NS IV 1000 ML 1,000 ML ONE (10:51)
[2019-02-06] MEDS ORDERED: ONDANSETRON 4 MG/2 ML (SDV) Z0FRAN ONE (11:29)
[2019-02-06] MEDS ORDERED: KETOROLAC 30 MG/ML VIAL ONE (11:29)
[2019-02-06] MEDS ORDERED: ONDANSETRON 4 MG/2 ML (SDV) Z0FRAN IVP ONE (11:30)
[2019-02-06] MEDS ORDERED: KETOROLAC 30 MG/ML VIAL IVP ONE (11:30)
[2019-02-06] MEDS ORDERED: NS IV 1000 ML 1,000 ML IV NR (11:30)
== END 2019-02-06 12:10 | disposition home or self-care (01) ==
LOC: SDC 10:32
PROVIDERS: ATTEND Nurse Practitioner Family
DX: N39.0 Urinary tract infection, site not specified (principal); E86.0 Dehydration; R10.12 Left upper quadrant pain; R10.32 Left lower quadrant pain
CPT/HCPCS: 96360; 96374; 96375

== ENCOUNTER 2019-03-31 14:43 | Emergency (ER) | payer MEDICARE, OTHER ==
[~2019-03-31] VITALS: Ht 149.9 cm; Wt 59.0 kg
[~2019-03-31 14:43] MED LIST changes: -HYDR118S10 PO; +HYDR15SO6 PO
--- OUTSIDE RECORDS SUMMARY | 2019-03-31 14:49 | XMS REPORT ---
Author Author Migration, Doctor Organization [facility] Address Unknown Phone Unavailable Care Team Providers Care Cell Geneticist Name Role Phone Migration, Doctor Unavailable Unavailable PROBLEMS Type Condition ICD9-CM Code UHU76-NU Code Onset Dates Condition Status SNOMED Code Problem Family history of diabetes mellitus V18.0 Active 477650128 Problem Encounter for long-term (current) use of other medications V58.69 Active 710973615 Problem Pain in soft tissues of limb 729.5 Active 59587449 Problem Unspecified myalgia and myositis 729.1 Active 560163212 Problem Pain in joint, site unspecified 719.40 Active 17336817 Problem Major depressive disorder, recurrent episode, moderate 296.32 Active 77367360 Problem Abdominal pain, right lower quadrant 789.03 Active 419275457 Problem Candidiasis of skin and nails 112.3 Active 745958563 Problem Routine general medical examination at health care facility V70.0 Active 155184870 Problem Influenza with other respiratory manifestations 487.1 Active 5621612 Problem Essential hypertension, benign 401.1 Active 7335192 Problem Anxiety state, unspecified 300.00 Active 492423793 Problem Other and unspecified hyperlipidemia 272.4 Active 12845139 ALLERGIES No Information ENCOUNTERS Encounter Location Date Diagnosis [place] [id number] [place] [address]66- [address] Oct, [facility] [place] [facility] [id number] [place] [address]010- [address]30 16 Sep, 2016 Dental examination Z01.20 [place] [address] [id number] [place] [address] 61630- 1661 28 Jul, 2016 Encounter for other administrative examinations Z02.89 [place] [address] [id number] [place] [address] 31225- 2155 07 Jul, 2016 [place] [address] [id number] [place] [address]01- 7837 Jun, Dental examination Z01.20 [facility] [place] [facility] [address] [facility] [id number] [address] Jun, Encounter for other administrative examinations Z02.89 [facility] [place] [facility] [address] [facility] [id number] [address] May, Encounter for dental examination Z01.20 [facility] [address] [place] [id number] [place] [address] [id number] Oct, Dental examination Z01.20 [facility] [address] [place] [address] [id number] [place] [id number] May, Dental examination V72.2 [facility] [id number] [place] [address] [id number] Apr, Dental examination V72.2 [facility] [id number] [place] [id number] Apr, Dental examination V72.2 [facility] [place] [facility] [address] [address] Feb, [facility] [place] [facility] [address] [address] Feb, [facility] [place] [facility] [id number] [address] Jan, [facility] [place] [facility] [address] [address] Jan, [facility] [place] [facility] [address] [address] Jan, [facility] [place] [facility] [address] [facility] [id number] [place] [address] Jan, [facility] [place] [facility] [address] [facility] [id number] [address] Nov, [facility] [place] [facility] [address] [address] Nov, [facility] [place] [facility] [address] [id number] [place] [address] Jun, [facility] [place] [facility] [address] [id number] [place] [address] Jun, [facility] [place] [facility] [address] [id number] [place] [address] Apr, [facility] [place] [facility] [address] [id number] [place] [address] Apr, [facility] [place] [facility] [address] [id number] [place] [address] Apr, [facility] [place] [facility] [address] [id number] [place] [address] 8267 Apr, [facility] [place] [facility] [address] [facility] [id number] [place] [address] Dec, [facility] [place] [facility] [address] [id number] [place] [address] 7741 Dec, [facility] [place] [facility] [address] [id number] [place] [address] Dec, [facility] [place] [facility] [address] [facility] [facility] [id number] [place] [address] Dec, [facility] [place] [facility] [address] [facility] [facility] [id number] [place] [address] Dec, [facility] [place] [facility] [address] [id number] [place] [address] Dec, [facility] [place] [facility] [address] [id number] [place] [address] Oct, [facility] [place] [facility] [address] [id number] [place] [address] Oct, [facility] [place] [facility] [address] [facility] [id number] [place] [address] Oct, [facility] [place] [facility] [address] [id number] [place] [address] 17 Oct, 2013 [facility] [address] [id number] [place] [address] 17 Oct, 2013 [facility] [place] [facility] [address] [id number] [place] [address]- 6106 17 Oct, 2013 [facility] [place] [facility] [address] [id number] [place] [address]- [address] 17 Oct, 2013 [facility] [place] [facility] [address] [id number] [place] [address]- [address]20 17 Oct, 2013 [facility] [place] [facility] [address] [id number] [place] [address]- 1421 16 Oct, 2013 [facility] [place] [facility] [address] [id number] [place] [address] 13 Oct, 2013 [facility] [place] [facility] [address] [id number] [place] [address]- 1197 13 Oct, 2013 [facility] [place] [facility] [address] [id number] [place] [address]- 8[address] 13 Oct, 2013 [facility] [place] [facility] [address] [id number] [place] [address]- [address]876 13 Oct, 2013 [facility] [place] [facility] [address] [id number] [place] [address]- 56[address] 11 Oct, 2013 [facility] [place] [facility] [address] [id number] [place] [address] 8[address] Oct, [facility] [place] [facility] [address] [id number] [place] [address] Oct, [facility] [place] [facility] [address] [id number] [place] [address]- [address] 30 Sep, 2013 [facility] [place] [facility] [address] [id number] [place] [address]- [address] Sep, [facility] [place] [facility] [address] [id number] [place] [address] 2547 Sep, [facility] [place] [facility] [address] [address] Sep, [facility] [place] [facility] [address] [address] Sep, [facility] [place] [facility] [address] [address] Jun, [facility] [place] [facility] [id number] [place] [address]- 1306 May, [facility] [place] [facility] [id number] [place] [address] 11[address]- 6157 May, [facility] [place] [facility] [id number] [place] [address]- 1227 Dec, [facility] [place] [facility] [address] [address] Aug, [facility] [place] [facility] [address] [address] Nov, IMMUNIZATIONS No Known Immunizations SOCIAL HISTORY Never Assessed [place]ASON FOR [place]IT [place] [place] VITAL SIGNS MEDICATIONS Unknown Medications RESULTS No Results PROCEDURES No Known procedures INSTRUCTIONS MEDICATIONS ADMINISTERED No Known Medications MEDICAL (GENERAL) HISTORY Type Description Date Medical History back trouble Surgical History Surgical History Gallbladder Surgical History Hysterectomy
--- OUTSIDE RECORDS SUMMARY | 2019-03-31 14:50 | XMS REPORT ---
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 Role Phone Migration, Doctor Unavailable Unavailable PROBLEMS Type Condition ICD9-CM Code KSR74-NP Code Onset Dates Condition Status SNOMED Code Problem Family history of diabetes mellitus V18.0 Active 324108218 Problem Encounter for long-term (current) use of other medications V58.69 Active 489991456 Problem Pain in soft tissues of limb 729.5 Active 06221344 Problem Unspecified myalgia and myositis 729.1 Active 739212433 Problem Pain in joint, site unspecified 719.40 Active 38262467 Problem Major depressive disorder, recurrent episode, moderate 296.32 Active 66429667 Problem Abdominal pain, right lower quadrant 789.03 Active 467825348 Problem Candidiasis of skin and nails 112.3 Active 253593161 Problem Routine general medical examination at health care facility V70.0 Active 256737247 Problem Influenza with other respiratory manifestations 487.1 Active 0400277 Problem Essential hypertension, benign 401.1 Active 6079611 Problem Anxiety state, unspecified 300.00 Active 876346214 Problem Other and unspecified hyperlipidemia 272.4 Active 87753309 ALLERGIES No Information ENCOUNTERS Encounter Location Date Diagnosis [place] [id number] [place] [address] Oct, [place] [address] [place] [id number] [place] [address]73- 79[address] 16 Sep, 2016 Dental examination Z01.20 [place] [address] [place] [id number] [place] [address]0930- 4[address] 28 Jul, 2016 Encounter for other administrative examinations Z02.89 [place] [address] [place] [id number] [place] [address] 43257- [address] 07 Jul, 2016 [place] [address] [place] [id number] [place] [address] 27135- 4049 Jun, Dental examination Z01.20 [facility] [address] [facility] [id number] [address] Jun, Encounter for other administrative examinations Z02.89 [facility] [address] [facility] [id number], [place] [address] May, Encounter for dental examination Z01.20 [facility] [id number] [place] [id number] Oct, Dental examination Z01.20 [facility] [address] [id number] [id number] May, Dental examination V72.2 [facility] [address] [id number] [place] [address] [id number] Apr, Dental examination V72.2 [facility] [id number] [place] [address] [id number] Apr, Dental examination V72.2 [facility] [address] [address] Feb, [facility] [address] [address] Feb, [facility] [address] [id number] [address] Jan, [facility] [address] [address] Jan, [facility] [address] [address] Jan, [facility] [address] [facility] [id number] [address] Jan, [facility] [address] [facility] [id number] [address] Nov, [facility] [address] [address] Nov, [facility] [place] [facility] [address] [id number] [place] [address] Jun, [facility] [place] [facility] [address] [id number] [place] [address]991 Jun, [facility] [place] [facility] [address] [id number] [place] [address] Apr, [facility] [place] [facility] [address] [id number] [place] [address] 1794 Apr, [facility] [place] [facility] [address] [id number] [place] [address] Apr, [facility] [place] [facility] [address] [id number] [place] [address] 8873 Apr, [facility] [place] [facility] [address] [facility] [id number] [place] [address] 2259 Dec, [facility] [place] [facility] [address] [id number] [place] [address] 1441 Dec, [facility] [place] [facility] [address] [id number] [place] [address] 0597 Dec, [facility] [place] [facility] [address] [facility] [id number] [place] [address] 0941 Dec, [facility] [place] [facility] [address] [facility] [id number] [place] [address] 0361 Dec, [facility] [place] [facility] [address] [id number] [place] [address] 1331 Dec, [facility] [place] [facility] [address] [id number] [place] [address] 3064 Oct, [facility] [place] [facility] [address] [id number] [place] [address] 8267 Oct, [facility] [place] [facility] [address] [facility] [id number] [place] [address] 8106 Oct, [facility] [place] [facility] [address] [id number] [place] [address]- 2546 17 Oct, 2013 [facility] [address] [id number] [place] [address] 17 Oct, 2013 [facility] [place] [facility] [address] [id number] [place] [address]- 3086 17 Oct, 2013 [facility] [place] [facility] [address] [id number] [place] [address]- 4336 17 Oct, 2013 [facility] [place] [facility] [address] [id number] [place] [address]- 5444 17 Oct, 2013 [facility] [place] [facility] [address] [id number] [place] [address]- 4995 16 Oct, 2013 [facility] [place] [facility] [address] [id number] [place] [address] 13 Oct, 2013 [facility] [place] [facility] [address] [id number] [place] [address]- 0588 13 Oct, 2013 [facility] [place] [facility] [address] [id number] [place] [address]- 2595 13 Oct, 2013 [facility] [place] [facility] [address] [id number] [place] [address]- 2644 13 Oct, 2013 [facility] [place] [facility] [address] [id number] [place] [address]- 6007 11 Oct, 2013 [facility] [place] [facility] [address] [id number] [place] [address]- 0574 Oct, [facility] [place] [facility] [address] [id number] [place] [address]- 6346 Oct, [facility] [place] [facility] [address] [id number] [place] [address]- 7631 30 Sep, 2013 [facility] [place] [facility] [address] [id number] [place] [address]- 8989 Sep, [facility] [place] [facility] [address] [id number] [place] [address] 2549 Sep, [facility] [place] [facility] [address] [address] Sep, [facility] [address] [address] Sep, [facility] [address]65[address] [address] Jun, [facility] [address] [place] [address] May, [facility] [id number] [place] [address] 6741 May, [facility] [address] [place] [address] 6701 Dec, [facility] [address], [place] [address] Aug, [facility] [address] [address] Nov, IMMUNIZATIONS No Known Immunizations SOCIAL HISTORY Never Assessed REASON FOR VISIT EMR[place] [place] C[place] VITAL SIGNS MEDICATIONS Unknown Medications RESULTS No Results PROCEDURES No Known procedures INSTRUCTIONS MEDICATIONS ADMINISTERED No Known Medications MEDICAL (GENERAL) HISTORY Type Description Date Medical History back trouble Surgical History Surgical History Gallbladder Surgical History Hysterectomy
[2019-03-31] MEDS ORDERED: SULF1TAB35 PO (16:30)
--- NOTE | 2019-03-31 16:33 | ED Integumentary General ---
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 PT COMPLAINS OF PAIN BUT HAS NOT TAKNE ANYTHING. Source: patient Exam Limitations: no limitations History of Present Illness Date Seen by Provider: March 31, 2019 Time Seen by Provider: 16:28 Initial Comments 53-year-old female who presents to the emergency room with complaints of brown recluse spider bite to the bottom of her left foot. She reports that she felt the bite and swatted the spider killing it. There is a small puncture to the bottom of her left foot. Timing/Duration: just prior to arrival Possible Cause: insect bite Associated Symptoms: denies symptoms Allergies and Home Medications Allergies Coded Allergies: Penicillins (Verified Allergy, Severe, ANAPHYLACTIC, 03/02/14) Home Medications Hydrocodone Bit/Acetaminophen 118 Ml Solution, 15 ML PO Q4H PRN for PAIN-MILD OR TEMPATURE Prescribed by: CARLITA FLORES on 06/23/18 1433 Sulfamethoxazole/Trimethoprim 1 Each Tablet, 1 EACH PO BID Prescribed by: CARLITA FLORES on 03/31/19 1630 Patient Home Medication List Home Medication List Reviewed: Yes Review of Systems Review of Systems Constitutional: see HPI; No chills, No fever All Other Systems Reviewed Negative Unless Noted: Yes Past Qoiehsn-Arqvhh-Pxnesn Hx Past Med/Social Hx: Reviewed Nursing Past Med/Soc Hx Patient Social History Alcohol Use: Denies Use Recreational Drug Use: No Smoking Status: Never a Smoker Recent Foreign Travel: No Contact w/Someone Who Travel: No Recent Infectious Disease Expo: No Recent Hopitalizations: Yes (MAY 29-GASTRIC SLEEVE) Immunizations Up To Date Tetanus Booster (TDap): Less than 5yrs Date of Influenza Vaccine: Sep 11, 2014 Seasonal Allergies Seasonal Allergies: Yes Past Medical History Surgeries: Yes (PARTIAL KIDNEY REMOVED) Section, Gallbladder, Hysterectomy, Orthopedic Respiratory: No Cardiac: No Neurological: Yes Headaches /Migraines Reproductive Disorders: Yes (ENDOMETRIOSIS, MILD DYSPLASIA) Female Reproductive Disorders: 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 Sexually Transmitted Disease: No HIV/AIDS: No Gastrointestinal: Yes Diverticulosis, Gall Bladder Disease Musculoskeletal: Yes Arthritis, Fibromyalgia Endocrine: No Cancer: 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 Psychosocial: Yes (mood disorder) Anxiety, Depression Integumentary: No Blood Disorders: No Adverse Reaction/Blood Tranf: No Family Medical History Reviewed Nursing Family Hx Cancer 03 FATHER 03 MOTHER (cerivcal) Cataract 03 MOTHER Chest pain 03 MOTHER Congestive heart failure (grandmother) Dementia (grandmother) Family history: Allergy (son) Family history: Alzheimer's disease (grandmother) Family history: Arthritis 03 MOTHER Family history: Asthma (son) Family history: Cardiovascular disease 03 MOTHER Family history: Diabetes mellitus 03 MOTHER Family history: Hypertension 03 FATHER 03 MOTHER Hearing loss 03 FATHER Heart disease 03 MOTHER History of - anemia 03 MOTHER 09 SISTER Hypercholesterolemia 03 FATHER 03 MOTHER Malignant neoplasm of lung 03 FATHER Myocardial infarction 09 BROTHER No Family History of: Abdominal aortic aneurysm Rickie's disease Alcoholism Aphasia Cancer of colon Congenital heart disease Cystic fibrosis Dysphagia Family history: Breast disease Family history: Coronary thrombosis Family history: Gastrointestinal disease Family history: Glaucoma Family history: Osteoporosis Family history: Thyroid disorder Headache Hereditary disease History of - disorder History of - respiratory disease History of drug abuse Human immunodeficiency virus (HIV) seropositivity Infertile Kidney disease Parkinson's disease Prostate cancer Psychotic disorder Seizure disorder Stroke Tuberculosis Visual impairment No Pertinent Family Hx Physical Exam Vital Signs Vital Signs - First Documented 03/31/19 15:15 Temp 98.1 Pulse 61 Resp 16 B/P (MAP) 148/87 (107) Pulse Ox 99 O2 Delivery Room Air Capillary Refill : Less Than 3 Seconds General Appearance: WD/WN, no apparent distress Respiratory: chest non-tender, lungs clear, normal breath sounds, no respiratory distress, no accessory muscle use Gastrointestinal: normal bowel sounds, non tender, soft, no organomegaly, no pulsatile mass Skin: normal color, warm/dry, other (small puncture site to the palmar surface of the left foot just below the left great toe. No erythema, blanching, or drainage noted.) Progress/Results/Core Measures Results/Orders Vital Signs/I&O 03/31/19 03/31/19 15:15 16:45 Temp 98.1 98.1 Pulse 61 61 Resp 16 16 B/P (MAP) 148/87 (107) 148/87 (107) Pulse Ox 99 99 O2 Delivery Room Air Blood Pressure Mean: 107 Departure Impression Primary Impression: Spider bite wound Disposition: 01 HOME, SELF-CARE Condition: Stable/Unchanged Departure-Patient Inst. Decision time for Depature: 16:28 Referrals: LUIS E GERARD MD (PCP/Family) Primary Care Physician Patient Instructions: Insect Bites and Stings (DC) Add. Discharge Instructions: You may use Tylenol as directed by the bottle for pain relief. Watch for signs of infection such as increased redness, swelling, drainage, pain. Take antibiotics as directed. Follow-up with Dr. Gerard within 1 week for recheck. Return back to the emergency room for worsening symptoms or concerns as needed. All discharge instructions reviewed with patient and/or family. Voiced understanding. Scripts Sulfamethoxazole/Trimethoprim (Bactrim Ds Tablet) 1 Each Tablet 1 EACH PO BID for 7 Days, #14 TAB Prov: CARLITA FLORES 03/31/19 CARLITA FLORES March 31, 2019 16:33
[2019-03-31 16:45] VITALS: BP 148/87
== END 2019-03-31 16:45 | disposition home or self-care (01) ==
LOC: EDUNIT# 14:43 → ER 14:44
DX: T63.331A Toxic effect of venom of brown recluse spider, accidental (unintentional), initial encounter (principal); G43.909 Migraine, unspecified, not intractable, without status migrainosus; M79.7 Fibromyalgia; F41.9 Anxiety disorder, unspecified; F32.9 Major depressive disorder, single episode, unspecified; Z82.49 Family history of ischemic heart disease and other diseases of the circulatory system; Z80.1 Family history of malignant neoplasm of trachea, bronchus and lung; Z80.49 Family history of malignant neoplasm of other genital organs; Z85.528 Personal history of other malignant neoplasm of kidney; Z87.19 Personal history of other diseases of the digestive system; Z87.448 Personal history of other diseases of urinary system; Z88.0 Allergy status to penicillin; Z90.710 Acquired absence of both cervix and uterus; Z98.890 Other specified postprocedural states; Z90.5 Acquired absence of kidney
CPT/HCPCS: 99283

== ENCOUNTER → 2019-06-19 | Outpatient (CLI) | payer MEDICARE, OTHER ==
--- NOTE | 2019-06-19 13:40 | Diagnostic Imaging Report ---
MRI LT LOWER EXT JOINT W/O TECHNIQUE: Multiplanar, multisequence MR imaging of the left knee was performed without contrast. COMPARISON: Left knee radiographs from 05/02/2017 . INDICATION: Left knee pain. FINDINGS: MENISCI Medial meniscus: Degenerative macerated tearing throughout the entire medial meniscus. There is a near-complete radial tear in the posterior root fibers of the medial meniscus. The body of the medial meniscus is partially extruded into the medial gutter. Lateral meniscus: Degenerative free edge tearing of the lateral meniscus is also present. LIGAMENTS ACL: Intact. PCL: Intact. MCL: Intact. LCL: The lateral collateral ligamentous complex is intact. EXTENSOR MECHANISM The extensor mechanism is intact. CARTILAGE Medial compartment: Diffuse full-thickness articular cartilage loss throughout the weightbearing aspect of the medial compartment. A small amount of subchondral bone marrow edema is present in the medial femoral condyle. Lateral compartment: Multifocal partial-thickness chondral loss and fissuring. Patellofemoral compartment: Multifocal partial-thickness chondral loss which is high-grade in the anterior aspect of the patella. BONE No fracture, stress fracture or osteonecrosis. SOFT TISSUE Moderate-sized knee joint effusion. Tiny Babin's cyst. IMPRESSION: 1. Severe tricompartmental knee osteoarthritis is most advanced in the medial compartment. 2. Associated degenerative macerated tearing of the medial and lateral menisci. 3. Moderate-sized knee joint effusion with synovitis is likely reactive due to the advanced osteoarthritis. Dictated by: Dictated on workstation # [id number]
== END ==
LOC: RAD 12:21
PROVIDERS: ATTEND Nurse Practitioner Family
DX: M17.12 Unilateral primary osteoarthritis, left knee (principal); S83.242A Other tear of medial meniscus, current injury, left knee, initial encounter; S83.282A Other tear of lateral meniscus, current injury, left knee, initial encounter; M25.462 Effusion, left knee
CPT/HCPCS: 73721

== ENCOUNTER 2019-07-27 04:13 | Emergency (ER) | payer MEDICARE, OTHER ==
[~2019-07-27] VITALS: Ht 149.9 cm; Wt 60.3 kg
--- NOTE | 2019-07-27 04:20 | NUR ---
PT C/O RIGHT KNEE PAIN S/P KNEE REPLACEMENT 07/17/19, DENIES NEW INJURY. 0425 ICE PACK APPLIED, RIGHT KNEE ELEVATED ON PILLOW.
[2019-07-27] MEDS ORDERED: ASPI325T32 (04:30)
[2019-07-27] MEDS ORDERED: GBPN600T (04:30)
[2019-07-27] MEDS ORDERED: PANT40TA3 (04:30)
[2019-07-27] MEDS ORDERED: TRAM50TA2 (04:30)
[2019-07-27 05:13] VITALS: BP 149/84
[2019-07-27] MEDS ORDERED: HYDR-34 PO (05:14)
--- NOTE | 2019-07-27 05:14 | ED Lower Extremity ---
General Chief Complaint: Lower Extremity Stated Complaint: RT KNEE PAIN-POST OP KNEE REPLACEMENT SURGERY PAIN Nursing Triage Note: RIGHT KNEE PAIN SINCE 07/17/19 KNEE REPLACEMENT Nursing Sepsis Screen: No Definite Risk Allergies and Home Medications Allergies Coded Allergies: Penicillins (Verified Allergy, Severe, ANAPHYLACTIC, 03/02/14) Home Medications Hydrocodone Bit/Acetaminophen 118 Ml Solution, 15 ML PO Q4H PRN for PAIN-MILD OR TEMPATURE Prescribed by: CARLITA FLORES on 06/23/18 1433 Past Bhpzdrj-Zuiyne-Uqnkog Hx Patient Social History Alcohol Use: Denies Use Recreational Drug Use: No Smoking Status: Never a Smoker 2nd Hand Smoke Exposure: No Recent Foreign Travel: No Contact w/Someone Who Travel: No Recent Infectious Disease Expo: No Recent Hopitalizations: Yes (07/17/19 RTK) Physical Abuse: No Sexual Abuse: No Mistreated: No Fear: No Immunizations Up To Date Tetanus Booster (TDap): Less than 5yrs Date of Influenza Vaccine: Sep 11, 2014 Seasonal Allergies Seasonal Allergies: Yes Past Medical History Surgeries: Yes (PARTIAL KIDNEY REMOVED) Section, Gallbladder, Hysterectomy, Orthopedic Respiratory: No Cardiac: No Neurological: Yes Headaches /Migraines : No Reproductive Disorders: Yes (ENDOMETRIOSIS, MILD DYSPLASIA) Female Reproductive Disorders: 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 Sexually Transmitted Disease: No HIV/AIDS: No Genitourinary: No Gastrointestinal: Yes Diverticulosis, Gall Bladder Disease Musculoskeletal: Yes Arthritis, Fibromyalgia Endocrine: No HEENT: No Cancer: 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 Psychosocial: Yes Anxiety, Depression Integumentary: No Blood Disorders: No Adverse Reaction/Blood Tranf: No Family Medical History Cancer 03 FATHER 03 MOTHER (cerivcal) Cataract 03 MOTHER Chest pain 03 MOTHER Congestive heart failure (grandmother) Dementia (grandmother) Family history: Allergy (son) Family history: Alzheimer's disease (grandmother) Family history: Arthritis 03 MOTHER Family history: Asthma (son) Family history: Cardiovascular disease 03 MOTHER Family history: Diabetes mellitus 03 MOTHER Family history: Hypertension 03 FATHER 03 MOTHER Hearing loss 03 FATHER Heart disease 03 MOTHER History of - anemia 03 MOTHER 09 SISTER Hypercholesterolemia 03 FATHER 03 MOTHER Malignant neoplasm of lung 03 FATHER Myocardial infarction 09 BROTHER No Family History of: Abdominal aortic aneurysm Assaria's disease Alcoholism Aphasia Cancer of colon Congenital heart disease Cystic fibrosis Dysphagia Family history: Breast disease Family history: Coronary thrombosis Family history: Gastrointestinal disease Family history: Glaucoma Family history: Osteoporosis Family history: Thyroid disorder Headache Hereditary disease History of - disorder History of - respiratory disease History of drug abuse Human immunodeficiency virus (HIV) seropositivity Infertile Kidney disease Parkinson's disease Prostate cancer Psychotic disorder Seizure disorder Stroke Tuberculosis Visual impairment No Pertinent Family Hx Physical Exam Vital Signs Vital Signs - First Documented 07/27/19 04:20 Temp 98.5 Pulse 73 Resp 18 B/P (MAP) 149/84 (105) Pulse Ox 100 O2 Delivery Room Air Capillary Refill : Less Than 3 Seconds Height, Weight, BMI Height: 4'11.00" Weight: 133lbs. 0oz. 60.765277sq; 29.08 BMI Method:Stated Progress/Results/Core Measures Results/Orders My Orders Orders - SAL PATTERSON DO Knee, Right, 3 Views (07/27/19 04:36) Hydrocodone/Apap 10/325 Tablet (Lortab 1 (07/27/19 05:15) Vital Signs/I&O 07/27/19 04:20 Temp 98.5 Pulse 73 Resp 18 B/P (MAP) 149/84 (105) Pulse Ox 100 O2 Delivery Room Air Blood Pressure Mean: 105 Departure Impression Primary Impression: Postoperative pain of right knee Additional Impression: POST OP SWELLING OF RIGHT KNEE Disposition: 01 HOME, SELF-CARE Condition: Stable Departure-Patient Inst. Referrals: LENORA CABRERA MD, RICK D MD (PCP/Family) Primary Care Physician Patient Instructions: Postoperative Pain (DC) Add. Discharge Instructions: WEAR DIMITRI HOSE AT ALL TIMES USE WALKER AT ALL TIMES ICE TO AREA AT 20 MINUTE INTERVALS ELEVATE LEG MUCH POSSIBLE TAKE YOUR TRAMADOL EVERY 4 HOURS NEEDED FOR PAIN, IN ADDITION TO PRESCRIBED DOSE OF HYDROCODONE FOLLOW UP WITH DR. CABRERA ON MONDAY FOR FURTHER CARE All discharge instructions reviewed with patient and/or family. Voiced unde rstanding. Scripts Hydrocodone Bit/Acetaminophen (LORTAB 7.5 MG TABLET) 1 Ea Tablet 1 EA PO Q4H PRN for PAIN-MODERATE MDD 6 for 3 Days, #20 TAB Prov: SAL PATTERSON DO 07/27/19 SAL PATTERSON DO Jul 27, 2019 05:14
[2019-07-27] MEDS ORDERED: HYDROcodone/APAP 10 MG/325 MG (LORTAB) TAB PO ONE (05:15)
--- NOTE | 2019-07-27 05:57 | Diagnostic Imaging Report ---
INDICATION: Knee pain status post knee replacement COMPARISON: 05/02/2017 FINDINGS: 3 views of the right knee were obtained. Expected postoperative changes are seen from interval right knee total arthroplasty. Femoral and tibial components appear well-seated. There is no evidence of periprosthetic fracture. No unexpected radiopaque foreign bodies are identified. IMPRESSION: Expected postsurgical changes from interval right knee total arthroplasty, as described above. Dictated by: Dictated on workstation # [id number]
== END 2019-07-27 05:20 | disposition home or self-care (01) ==
LOC: EDUNIT# 04:13 → ER 04:17
DX: G89.18 Other acute postprocedural pain (principal); M25.561 Pain in right knee; M25.461 Effusion, right knee; G43.901 Migraine, unspecified, not intractable, with status migrainosus; M79.7 Fibromyalgia; F41.9 Anxiety disorder, unspecified; F32.9 Major depressive disorder, single episode, unspecified; Z87.19 Personal history of other diseases of the digestive system; Z96.651 Presence of right artificial knee joint; Z88.0 Allergy status to penicillin; Z90.710 Acquired absence of both cervix and uterus; Z85.528 Personal history of other malignant neoplasm of kidney; Z82.49 Family history of ischemic heart disease and other diseases of the circulatory system; Z80.1 Family history of malignant neoplasm of trachea, bronchus and lung; Z80.8 Family history of malignant neoplasm of other organs or systems
CPT/HCPCS: 73562

== ENCOUNTER 2019-10-19 07:11 | Emergency (ER) | payer MEDICARE, OTHER ==
[~2019-10-19] VITALS: Ht 149.8 cm; Wt 60.0 kg
[~2019-10-19 07:11] MED LIST changes: +ASPI325T32; +GBPN600T; +HYDR-34 PO; +PANT40TA3; +TRAM50TA2
--- NOTE | 2019-10-19 07:24 | ED Lower Extremity ---
General Stated Complaint: FALL/R KNEE PAIN Source: patient, EMS Exam Limitations: no limitations History of Present Illness Date Seen by Provider: Oct 19, 2019 Time Seen by Provider: 07:06 Initial Comments The patient presents to ER by EMS from home where she lives with her son and chief complaint that yesterday she was in [place] visiting a friend and there is a motorcycle frame in the yard and it was dark she could not see it she tripped over it. She's not having pain swelling and lack of mobility in her left knee. She has not taken anything for the pain today. She rates it as a 2010. No ice. She is a history of knee replacement on her right knee but nothing to her left. She says her right knee is not bothering her anymore than usual. She did not strike her head nor lose consciousness. She's not having any dysuria fever chills cough shortness of breath. No numbness or tingling. She has a history of a partial nephrectomy secondary to cancer. She says she does not keep pain medicines around the house because she has a history of suicide attempt by overdose. Right knee surgery by Dr. Bianchi. Allergies and Home Medications Allergies Coded Allergies: Penicillins (Verified Allergy, Severe, ANAPHYLACTIC, 03/02/14) Home Medications Hydrocodone Bit/Acetaminophen 118 Ml Solution, 15 ML PO Q4H PRN for PAIN-MILD OR TEMPATURE Prescribed by: CARLITA FLORES on 06/23/18 1433 Hydrocodone Bit/Acetaminophen 1 Ea Tablet, 1 EA PO Q4H PRN for PAIN-MODERATE Prescribed by: SAL PATTERSON on 07/27/19 0514 Patient Home Medication List Home Medication List Reviewed: Yes Review of Systems Constitutional: No chills, No diaphoresis EENTM: No ear discharge, No ear pain Respiratory: No cough, No short of breath Cardiovascular: No chest pain, No edema Gastrointestinal: No abdominal pain, No nausea Genitourinary: No discharge, No dysuria Musculoskeletal: see HPI; No back pain; joint pain (left knee), joint swelling All Other Systems Reviewed Negative Unless Noted: Yes Past Slcuzdv-Pcplda-Vrrbcu Hx Patient Social History Alcohol Use: Denies Use Recreational Drug Use: No Smoking Status: Never a Smoker 2nd Hand Smoke Exposure: No Recent Hopitalizations: Yes (07/17/19 RTK) Immunizations Up To Date Tetanus Booster (TDap): Less than 5yrs Date of Influenza Vaccine: Sep 11, 2014 Seasonal Allergies Seasonal Allergies: Yes Past Medical History Surgeries: Yes Section, Gallbladder, Hysterectomy, Joint Replacement, Orthopedic, Renal Respiratory: No Cardiac: No Neurological: Yes Headaches /Migraines Reproductive Disorders: Yes (ENDOMETRIOSIS, MILD DYSPLASIA) Female Reproductive Disorders: 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 [employer] History: Hysterectomy, Menopausal Sexually Transmitted Disease: No HIV/AIDS: No Genitourinary: No Gastrointestinal: Yes Diverticulosis, Gall Bladder Disease Musculoskeletal: Yes (RIGHT TOTAL KNEE REPLACEMENT 07/17/[address] 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 Psychosocial: Yes Anxiety, Depression Integumentary: No Blood Disorders: No Adverse Reaction/Blood Tranf: No Family Medical History Cancer 03 FATHER 03 MOTHER (cerivcal) Cataract 03 MOTHER Chest pain 03 MOTHER Congestive heart failure (grandmother) Dementia (grandmother) Family history: Allergy (son) Family history: Alzheimer's disease (grandmother) Family history: Arthritis 03 MOTHER Family history: Asthma (son) Family history: Cardiovascular disease 03 MOTHER Family history: Diabetes mellitus 03 MOTHER Family history: Hypertension 03 FATHER 03 MOTHER Hearing loss 03 FATHER Heart disease 03 MOTHER History of - anemia 03 MOTHER 09 SISTER Hypercholesterolemia 03 FATHER 03 MOTHER Malignant neoplasm of lung 03 FATHER Myocardial infarction 09 BROTHER No Family History of: Abdominal aortic aneurysm Lorain's disease Alcoholism Aphasia Cancer of colon Congenital heart disease Cystic fibrosis Dysphagia Family history: Breast disease Family history: Coronary thrombosis Family history: Gastrointestinal disease Family history: Glaucoma Family history: Osteoporosis Family history: Thyroid disorder Headache Hereditary disease History of - disorder History of - respiratory disease History of drug abuse Human immunodeficiency virus (HIV) seropositivity Infertile Kidney disease Parkinson's disease Prostate cancer Psychotic disorder Seizure disorder Stroke Tuberculosis Visual impairment No Pertinent Family Hx Physical Exam Vital Signs Vital Signs - First Documented 10/19/19 07:11 Temp 36.4 Pulse 58 Resp 16 B/P (MAP) 145/85 (105) Pulse Ox 99 O2 Delivery Room Air Capillary Refill : Height, Weight, BMI Height: 4'11.00" Weight: 133lbs. 0oz. [id number]; 29.08 BMI Method:Stated General Appearance: WD/WN, mild distress HEENT: PERRL/EOMI, pharynx normal Cardiovascular: normal peripheral pulses (Symmetrical dorsal pedal pulses 2 out of 4), regular rate, rhythm Respiratory: no respiratory distress, no accessory muscle use Hips: bilateral hip non-tender, bilateral hip normal inspection, bilateral hip normal range of motion, bilateral hip no evidence of injury Legs: bilateral leg non-tender, bilateral leg normal inspection, bilateral leg normal range of motion, bilateral leg no evidence of injury Knees: right knee non-tender, right knee normal inspection (previous well- healed surgical scar), right knee normal range of motion, right knee no evidence of injury; left knee bone tenderness (anterior tibial plateau), left knee joint effusion, left knee pain, left knee soft tissue tenderness, left knee swelling (mild to moderate) Ankles: bilateral ankle non-tender, bilateral ankle normal inspection, bilateral ankle normal range of motion, bilateral ankle no evidence of injury Neurologic/Psychiatric: no motor/sensory deficits, alert, normal mood/affect, oriented x 3 Skin: normal color, warm/dry Progress/Results/Core Measures Results/Orders My Orders Orders - BRAYAN ENG Ketorolac Injection (Toradol Injection) (10/19/19 07:30) Knee, Left, 3 Views (10/19/19 07:17) Medications Given in ED Current Medications Medications Dose Ordered Sig/Kali Route Start Time Stop Time Status Last Admin Dose Admin Ketorolac Tromethamine 60 mg ONCE ONCE IM 10/19/19 07:30 10/19/19 07:31 DC 10/19/19 07:24 60 MG Vital Signs/I&O 10/19/19 07:11 Temp 36.4 Pulse 58 Resp 16 B/P (MAP) 145/85 (105) Pulse Ox 99 O2 Delivery Room Air Progress Progress Note : Time: 07:23 Progress Note Ice pack, x-ray 3 view and Toradol. Previously her creatinine has been normal and she should tolerate this as she takes ibuprofen when necessary. Patient unable to fully extend her knee and tolerate a thorough knee exam. Nicola bandage. Diagnostic Imaging Diagonstic Imaging: Xray Plain Films/CT/US/NM/MRI: knee (left 3v) Comments No acute osseous abnormality. NAME: ESAU HERNÁNDEZ [facility] REC#: [id number] PT STATUS: REG ER : 1965 PHYSICIAN: BRAYAN ENG MD ADMIT DATE: 10/19/19/ER Draft POSDate of Exam:10/19/19 KNEE, LEFT, 3 VIEWS INDICATION: Left knee pain. Unable to bend the knee. COMPARISON: 05/02/2017 TECHNIQUE: 3 views of the left knee. FINDINGS: There is no acute fracture or dislocation of the left knee. Interval progression of degenerative changes are noted in the left knee with marginal osteophytes, joint space narrowing, and subchondral sclerosis. No large joint effusion is seen in the left knee. The soft tissues of the left knee are unremarkable. IMPRESSION: 1. No acute displaced fracture is seen in the left knee. 2. Interval increase in degenerative changes in the left knee. Consider further evaluation with left knee MRI on an outpatient basis. Dictated on workstation # [id number] Dict: 10/19/19812 Trans: 10/19/19815 [id number] Interpreted by: KATIE HAMMOND DO Electronically signed by: Reviewed: Reviewed by Me Departure Impression Primary Impression: Left knee injury Qualified Codes: S89.92XA - Unspecified injury of left lower leg, initial encounter Additional Impression: Fall Qualified Codes: W19.XXXA - Unspecified fall, initial encounter Disposition: HOME, SELF-CARE Condition: Stable Departure-Patient Inst. Decision time for Depature: 08:15 Referrals: LENORA BIANCHI MD, RICK D MD (PCP/Family) Primary Care Physician Patient Instructions: Knee Sprain (DC) Add. Discharge Instructions: Nicola bandage for compression until the swelling and pain improves. Ice pack 20 minutes on every 4 hours for the first 2-3 days for swelling and delia n. Tylenol 1000 mg every 8 hours as needed for pain. Ibuprofen 800 mg every 8 hours as needed for pain. Elevate your knee above the level of your heart for swelling and pain. Stay off your knee is much as possible. Weightbearing as tolerated. Use crutches as necessary. Follow-up with your surgeon by calling Monday morning and requesting an appointment in the next week or 2. Work/School Note: Work Release Form Date Seen in the Emergency Department: Oct 19, 2019 Return to Work: Oct 21, 2019 Restrictions: Need Release from Doctor Other Restrictions Listed Below: Minimize weightbearing left knee until 10/28/19. BRAYAN ENG Oct 19, 2019 07:24 POS
[2019-10-19] MEDS ORDERED: KETOROLAC 60 MG/2 ML VIAL IM ONE (07:30)
--- NOTE | 2019-10-19 08:06 | NUR ---
Pt reports toradol helped with knee pain.
--- NOTE | 2019-10-19 08:17 | Diagnostic Imaging Report ---
INDICATION: Left knee pain. Unable to bend the knee. COMPARISON: 05/02/2017 TECHNIQUE: 3 views of the left knee. FINDINGS: There is no acute fracture or dislocation of the left knee. Interval progression of degenerative changes are noted in the left knee with marginal osteophytes, joint space narrowing, and subchondral sclerosis. No large joint effusion is seen in the left knee. The soft tissues of the left knee are unremarkable. IMPRESSION: 1. No acute displaced fracture is seen in the left knee. 2. Interval increase in degenerative changes in the left knee. Consider further evaluation with left knee MRI on an outpatient basis. Dictated by: Dictated on workstation # [id number]
[2019-10-19 08:35] VITALS: BP 141/76
== END 2019-10-19 08:35 | disposition home or self-care (01) ==
LOC: EDUNIT# 07:11 → ER 07:12
DX: S89.92XA Unspecified injury of left lower leg, initial encounter (principal); G43.909 Migraine, unspecified, not intractable, without status migrainosus; F41.9 Anxiety disorder, unspecified; F32.9 Major depressive disorder, single episode, unspecified; M79.7 Fibromyalgia; Z85.528 Personal history of other malignant neoplasm of kidney; Z96.651 Presence of right artificial knee joint; Z90.5 Acquired absence of kidney; Z88.0 Allergy status to penicillin; Z90.710 Acquired absence of both cervix and uterus; Z82.49 Family history of ischemic heart disease and other diseases of the circulatory system; Z80.49 Family history of malignant neoplasm of other genital organs; Z80.1 Family history of malignant neoplasm of trachea, bronchus and lung; W01.0XXA Fall on same level from slipping, tripping and stumbling without subsequent striking against object, initial encounter; Y92.096 Garden or yard of other non-institutional residence as the place of occurrence of the external cause
CPT/HCPCS: 73562; 96372

== ENCOUNTER → 2021-01-18 | Outpatient (CLI) | payer MEDICARE, OTHER ==
[~2021-01-18] MED LIST changes: -DOXY100T19 PO; +DOXY100T31 PO; -PANT40TA3; +PANT40TA52; -TRAM50TA2; +TRM50T
== END ==
LOC: LABNPT 06:26
PROVIDERS: ATTEND Orthopaedic Surgery
DX: Z01.812 Encounter for preprocedural laboratory examination (principal); Z20.822 Contact with and (suspected) exposure to COVID-19
CPT/HCPCS: 87635

== ENCOUNTER → 2021-08-02 | Outpatient (CLI) | payer MEDICARE, OTHER ==
[~2021-08-02] MED LIST changes: -SULF1TAB35 PO; +SULF1TAB38 PO
--- NOTE | 2021-08-02 10:24 | Diagnostic Imaging Report ---
PROCEDURE: CT abdomen and pelvis without contrast. TECHNIQUE: Multiple contiguous axial images were obtained through the abdomen and pelvis without the use of intravenous contrast. Auto Exposure Controls were utilized during the CT exam to meet ALARA standards for radiation dose reduction. INDICATION: Malignant carcinoid tumor of kidney. COMPARISON: 06/23/2018. FINDINGS: Unenhanced images of the liver and spleen reveal no focal abnormality. Surgical findings are again noted along the course of the stomach. The gallbladder is surgically absent. There is no evidence of pancreatic or adrenal gland abnormality. Post operative findings are noted with interval removal of the exophytic nodule from the upper pole of the left kidney. The kidneys are otherwise stable and unremarkable on noncontrasted images. There is no evidence of free fluid within the abdomen or pelvis. The unopacified urinary bladder is unremarkable. IMPRESSION: Partial resection of the left kidney without evidence of acute abnormality or metastatic disease within the abdomen or pelvis. Dictated by: Dictated on workstation # [id number]
== END ==
LOC: RAD 10:15
DX: Z08 Encounter for follow-up examination after completed treatment for malignant neoplasm (principal); Z85.520 Personal history of malignant carcinoid tumor of kidney
CPT/HCPCS: 74176

== ENCOUNTER → 2022-05-18 | Outpatient (CLI) | payer MEDICARE, OTHER ==
[~2022-05-18] MED LIST changes: +CATHETER FLUSH 10 ML SYR IV PRN; +HOLD METFORMIN - RECEIVED CONTRAST 20 ML VIAL IV SCH; +IOHEXOL 350 MG/ML 100 ML (OMNIPAQUE 350) VIAL IV ONE; +NS 100 ML (IVPB) BAG IV ONE
--- NOTE | 2022-05-18 11:45 | Diagnostic Imaging Report ---
PROCEDURE: CT abdomen with and without contrast. TECHNIQUE: Multiple contiguous axial CT images of the abdomen were obtained prior to and after intravenous administration of iodinated contrast. Auto Exposure Controls were utilized during the CT exam to meet ALARA standards for radiation dose reduction. INDICATION: Renal cell carcinoma. COMPARISON: 08/02/2021 Surgical findings are again seen along the stomach with surgical residue along the superior pole of the left kidney. Gallbladder surgically absent. No focal hepatic, pancreatic or splenic abnormality is identified. Adrenal glands are also unremarkable. There are numerous scattered nonenhancing water density nodules throughout the renal cortices bilaterally which measure up to approximately 1 cm in size. These have increased in size and demonstrate an appearance suggestive of cysts. No definite solid lesion is identified and there is no evidence of pathologic adenopathy. IMPRESSION: Increasing number and conspicuity of what appear to be bilateral renal cysts. This does limit evaluation for small solid lesion although no dominant mass or other renal abnormality is detected. Dictated by: Dictated on workstation # [id number]
== END ==
LOC: RAD 10:45
PROVIDERS: ATTEND Urology
DX: C64.9 Malignant neoplasm of unspecified kidney, except renal pelvis (principal)
CPT/HCPCS: 74170